=== PATIENT | female | born 1940 | race Caucasian/White ===

== ENCOUNTER 2016-11-05 10:47 | Inpatient (IN) | payer MEDICARE, OTHER ==
--- NOTE | ~2016-11-05 | DS ---
Discharge Summary [facility] [address] [place]. [address] NAME: WILDER JARAMILLO : 42 STATUS : DIS IN PAT#: [id number] AGE: 76 ADM/REG DATE : 11/06/16 MR#: [id number] REPORT SERV DATE: 11/10/16 DICTATED BY: KAREN LIND DATE: 11/09/16 REPORT STATUS : Draft TRANSCRIBED BY: MODL DATE: 11/09/16 ADMISSION DATE: 11/06/2016 DISCHARGE DATE: 11/09/2016 ADDENDUM: This is an addendum to Dr. Altman's discharge summary done apparently yesterday. The patient's ESBL E. coli in the urine is distinctly sensitive to Macrobid for which she does not have any allergy to. We will do Macrobid 100 p.o. b.i.d. for 8 days. She states she has recurrent UTI 3 times a year, never seen the urologist. She will need to see a urologist in four weeks, likely have a recurrent infection. Additionally, she will maximize Lipitor 80 p.o. daily for anti-stroke prevention. Also A1c of 7.1 be maintained on metformin. She has been intermittently hypertensive, possibly has LINDA, causing nighttime hypertension. We will get hydralazine 25 p.o. t.i.d. p.r.n. systolic more than 180. Outpatient sleep study will be employed p.o. b.i.d. for eight days to reduce the risk of C. diff with now being on Macrobid from [facility]. FOLLOWUPS: Per Dr. Altman. Additionally, would like the patient to be seen by Neurology three to six weeks. Schedule outpatient echo for atrial fibrillation in four weeks as well. Urology for possible in four weeks. Outpatient sleep study in three to four weeks. Follow up with PCP in two weeks. The patient will be going to facility today via ambulance. All questions were answered. It took well over 30 minutes to do. WST/ARSENL Karen Lind DO / [id number] CC: DO Xavier Wynne
--- NOTE | ~2016-11-05 | HP ---
History And Physical [place] [id number] [facility] [place]. [address] NAME: WILDER JARAMILLO : 42 STATUS : ADM Anna PAT#: [id number] AGE: 76 ADM/REG DATE : 11/05/16 MR#: [id number] REPORT SERV DATE: 11/05/16 DICTATED BY: BISMARK LOMELI DATE: 11/05/16 REPORT STATUS : Draft TRANSCRIBED BY: MODDonna DATE: 11/05/16 DATE OF ADMISSION: 11/05/2016 REASON FOR ADMISSION: Stroke. HISTORY OF PRESENT ILLNESS: This is a 76-year-old white female, bedridden at the longterm at [facility]. She has been there since February, has not walked, and was not expected to walk again. She was awakened this morning with numbness and weakness in the right upper extremity and her wrist. She thought she had laid on it for a while. She came to the emergency room where a CT scan of her brain was negative for any acute abnormality. She has gained a little strength over time. She has been unable to walk for the last six months. She has a longstanding history of hypertension. She has recurrent urinary tract infections and nephrolithiasis in the past. She has a history of DVT and PE in the past and is on chronic anticoagulation. She has a history of coronary artery disease, history of diastolic congestive heart failure, history of shingles, postherpetic neuralgia, history of vertigo, and left periorbital fracture in the past. She has had bladder tack with sling, rectocele repair, hysterectomy, and oophorectomy in the past. ALLERGIES: CODEINE. FAMILY HISTORY: Coronary artery disease, strokes run in the family. SOCIAL HISTORY: She raised her family up in and around [place]. She grew up in [place] as a child. She has five children. She has had no cigarette or alcohol history in the past. She is not taking cigarettes or alcohol. Medications are being identified by pharmacy at this time. Her primary care physician is Dr. Barrett at [facility] and she had seen Dr. Dobbs as her primary care physician in the past. HOME MEDICATIONS: Include the following: Amlodipine 10 mg p.o. daily, vitamin C 500 mg p.o. twice a day, fluticasone nasal spray as needed, Lasix 20 mg p.o. daily, gabapentin 300 mg p.o. three times a day, lisinopril 5 mg p.o. daily, multivitamin 1 a day, Klor-Con 10 mEq p.o. b.i.d., and sotalol 120 mg p.o. b.i.d. This list does not contain warfarin that she said she had in the past with a history of atrial fibrillation. REVIEW OF SYSTEMS: She has had no headache, eye pain, double vision, nausea, vomiting, diarrhea. No fits, History And Physical [address] [place]. [address] NAME: WILDER JARAMILLO : 42 STATUS : ADM Anna PAT#: [id number] AGE: 76 ADM/REG DATE : 11/05/16 MR#: [id number] REPORT SERV DATE: 11/05/16 DICTATED BY: BISMARK LOMELI DATE: 11/05/16 REPORT STATUS : Draft TRANSCRIBED BY: MICHELLE DATE: 11/05/16 seizures, nausea, vomiting, melena, or hematemesis. She does have right unilateral weakness in the hand but has good motion of her shoulder. The remaining of the review of systems is negative. PHYSICAL EXAMINATION: VITAL SIGNS: Her blood pressure is 168/100 with a heart rate of 78, respiratory rate 16, afebrile. HEENT: EOMI. Sclerae clear. Conjunctivae pink. Speech is normal. NECK: No bruit. No JVD. HEART: Regular S1, S2 without murmur, gallop, or click. CHEST: Clear to A and P. ABDOMEN: Soft and nontender. Bowel sounds positive. EXTREMITIES: Trace edema in the ankles. Distal pulses are trace. NEUROLOGIC: She has weakness in the right hand, unable to information security consultant. She says it subjectively decreased. The hand is cool. Distal pulses intact at the radial artery and has normal brian and refill. There is hyperesthesia of the feet bilaterally. She withdraws to plantar stimulation. DTRs not elicitable at the knees and ankles and not in the upper extremities either. SKIN: Ruboric diffusely without rash, ecchymosis, or bruising. LYMPHATICS: There is no adenopathy palpable. LABORATORY DATA: Chest x-ray shows no acute disease. She has modest cardiomegaly, unchanged. CT scan of her brain shows stable noncontrasted study with chronic small-vessel ischemia. CMP shows sodium 141, potassium 4.2, chloride 105, creatinine 0.8, BUN 11, glucose 126, albumin 3.1, globulin 4.8, alkaline phosphatase is 186. Troponin less than 0.02. Liver tests normal. Otherwise, the white count 6.8, hemoglobin 13.4, hematocrit 40.8, platelets were 297 and her glucose was 126 on arrival. ASSESSMENT: 1. Isolated lacunar stroke on the right side versus ischemic injury from having laid on it overnight. She does have good distal pulse now. She appears to be improving. She can extend her thumb on the right side slightly. There is diminished sensation in the right side. We will admit for observation and check ultrasound of the carotids. If the carotids show no evidence of occlusion, she may be able to go back to longterm fairly quickly. 2. Diabetes type 2, on no medications at this time. 3. Morbid obesity. 4. Hypertension. 5. Deconditioned state with bedridden status, unable to walk. PLAN: Ultrasound of carotid arteries will rule out occlusion that would be something that would prevent further stroke. She was on Coumadin, consider restarting the Coumadin. She does not want to be resuscitated in the event of cardiac arrest or have artificial resuscitative attempts in the event of a natural . I will go ahead and consult Neurology as a courtesy for the stroke admission orders and await a full medication list. History And Physical [address] [address] NAME: WILDER JARAMILLO : 42 STATUS : ADM Anna PAT#: [id number] AGE: 76 ADM/REG DATE : 11/05/16 MR#: [id number] REPORT SERV DATE: 11/05/16 DICTATED BY: BISMARK LOMELI DATE: 11/05/16 REPORT STATUS : Draft TRANSCRIBED BY: MICHELLE DATE: 11/05/16 DB/MICHELLE Bismark Lomeli M.D. / [id number] CC: Juan Diaz MICHAEL EUGENE Mario Mariani, M.D.
--- NOTE | ~2016-11-05 | DS ---
Discharge Summary [place] [id number] [place]. [address] NAME: WILDER JARAMILLO : 42 STATUS : DIS IN PAT#: [id number] AGE: 76 ADM/REG DATE : 11/06/16 MR#: [id number] REPORT SERV DATE: 12/01/16 DICTATED BY: CANDACE DELAROSA DATE: 11/21/16 REPORT STATUS : Draft TRANSCRIBED BY: MODDonna DATE: 11/21/16 ADMISSION DATE: 11/06/2016 DISCHARGE DATE: 11/09/2016 DATE OF SUMMARY: 11/09/2016 PRINCIPAL DIAGNOSIS: Stroke of the left hemisphere affecting the right hand. SECONDARY DIAGNOSES: Extended-spectrum beta-lactamase, urinary tract infection, hypertension, hyperlipidemia. HISTORY OF PRESENT ILLNESS: Please see Dr. Muniz's dictation on 11/05/2016. HOSPITAL COURSE: Admitted with isolated paresis of the right hand. There was a concern about radicular disease on initial Neurological consultation; however, this was not any particular spinal nerve consistent problem, but more global within the hand. MRI of the brain did in fact reveal a CVA. She underwent physical and occupational therapy and was referred to rehab, would be to transfer her on 11/09/2016, but she ended up going on 11/10/2016 and will be discharged by Dr. Watt. JESUS/MICHELLE Candace Delarosa M.D. / [id number] CC: DO Lebron Wynne M.D.
--- NOTE | ~2016-11-05 | CN ---
Consultation Report [facility] [address] [place]. [address] NAME: WILDER JARAMILLO : 42 STATUS : ADM Anna PAT#: [id number] AGE: 76 ADM/REG DATE : 11/05/16 MR#: [id number] REPORT SERV DATE: 11/05/16 DICTATED BY: STAR COMER DATE: 11/05/16 REPORT STATUS : Draft TRANSCRIBED BY: MODDonna DATE: 11/05/16 NEUROLOGY CONSULTATION DATE OF CONSULTATION: 11/05/2016 REASON FOR CONSULTATION: Possible stroke. HOSPITALIST: Gurinder Altman M.D. HISTORY OF PRESENT ILLNESS: The patient is a 76-year-old female who resides at [facility]. She woke up this morning and could not move her right hand. She thinks she may have "slept on her arm wrong," but she has very limited mobility with her right hand. She denies any other symptoms such as visual changes, numbness, weakness, imbalance, or changes in her speech. As the day has progressed, she has gotten some range of motion back in her right hand. According to the family, the patient has limited range of motion of her left arm. She had a bad case of shingles and had postherpetic neuralgia and because of the pain, she did not move her left arm. Consequently, she has limited range of motion. PAST MEDICAL HISTORY: Morbid obesity, hypertension, diabetes mellitus type 2, PE, DVT, atrial fibrillation, diastolic heart failure, chronic kidney disease, and coronary artery disease. PAST SURGICAL HISTORY: ISELA with BSO, appendectomy, bladder tack, rectocele repair. HOME MEDICATION LIST: Please refer to the chart. ALLERGIES: CODEINE. SOCIAL HISTORY: The patient resides at [facility]. She has five children. She is a retired automotive worker. She does not smoke, drink alcohol, or use illicits. FAMILY HISTORY: The patient's mother of stroke, father of [place]. She has six brothers, two of whom are living. REVIEW OF SYSTEMS: See HPI. PHYSICAL EXAMINATION: VITAL SIGNS: The patient is a 76-year-old female who stands 5 feet 5 inches tall and weighs 220 pounds. She is afebrile. Heart rate 84, respiratory rate 22, O2 saturations on room air 95%, and blood pressure 183/80. NEUROLOGIC: She is alert. She is oriented x4. Cranial nerves 2 through 12 are intact. Consultation Report [place] [address] [place]. [address] NAME: WILDER JARAMILLO : 42 STATUS : ADM Anna PAT#: [id number] AGE: 76 ADM/REG DATE : 11/05/16 MR#: [id number] REPORT SERV DATE: 11/05/16 DICTATED BY: STAR COMER DATE: 11/05/16 REPORT STATUS : Draft TRANSCRIBED BY: MICHELLE DATE: 11/05/16 She is unable to perform [id number], unable to do a pronator drift because of weakness in both arms. No reported sensory deficits in either extremity. Upper DTRs are 1+ bilaterally. Lower extremity strength is maybe 3/5 bilaterally. Patellar reflex is 1+ bilaterally. Downgoing toes. No reported sensory deficits. Right arm, there is wrist drop on the right. Slightly diminished sensation on the top of the hand. Very minimal movement with the fingers. Able to slightly abduct, very minimal adduct. Mild swelling in the right hand. Tinel's sign is negative over the radial, ulnar, and median nerve. Phalen's sign, unable to perform. LABORATORY DATA: CBC is normal. BMP normal. INR 2.1. Cholesterol value is elevated. CT of the brain: Stable CT. Chronic small vessel ischemia. 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 OT will be consulted to evaluate the patient and place a wrist splint for stabilization. If the patient's condition does not improve by tomorrow, she will be sent for MR imaging to rule out structural causes. Lab work will be drawn such as a thyroid panel, A1c, ammonia, B12, folate, and vitamin levels. OT and PT consultation. Also if the patient's symptoms persist greater than 2 weeks, EMG nerve conduction studies will be considered. Thank you again for including us in consultation. We will continue to follow with you. JOSEPH NAOMI Taylor / [id number] CC: Juan Diaz
[2016-11-05 09:29] LABS: BASOPHILS 0.4 %; BASOPHILS ABSOLUTE 0.03 10/3/uL (0.0-0.16); EOSINOPHILS 4.3 %; EOSINOPHILS ABSOLUTE 0.29 10/3/uL (0.0-0.53); IMMATURE GRANULOCYTES 0.6 %; IMMATURE GRANULOCYTES ABSOLUTE 0.04 10/3/uL (0.0-0.11); LYMPHOCYTES 40.2 %; LYMPHOCYTES ABSOLUTE 2.72 10/3/uL (0.67-4.30); MEAN CORPUSCULAR HEMOGLOB 30.6 pg (26.0-34.0); MEAN CORPUSCULAR VOLUME 93.2 fL (80-100); MEAN PLATELET VOLUME 10.8 fL (9.2-13.0); MONOCYTES 5.5 %; MONOCYTES ABSOLUTE 0.37 10/3/uL (0.21-1.20); NEUTROPHILS ABSOLUTE 3.31 10/3/uL (2.02-8.40); PLATELET COUNT 297 10/3/uL (150-400); RBC DISTRIBUTION WIDTH 15.2 % (12.0-16.0); WHITE BLOOD CELLS 6.8 10/3/uL (4.5-10.5)
[2016-11-05 09:30] LABS: HEMATOCRIT 40.8 % (36.0-48.0); HEMOGLOBIN 13.4 g/dL (12.0-16.0); MANUAL DIFF NO %; MEAN CORPUS HGB CONC 32.8 g/dL (32.0-36.0); RED CELL COUNT 4.38 10/6/uL (4.0-5.6)
[2016-11-05 09:41] LABS: INTERNATIONAL NORMAL RATI 2.1 UNITS (-); PARTIAL THROMBO TIME 36.4 SEC (22.5-37.2); PROTIME (NOT ORD) 23.2 SEC (12.0-14.5)
[2016-11-05 09:46] LABS: BUN (BLOOD UREA NITROGEN) 11 MG/DL (6-23); CALCIUM, SERUM 9.6 MG/DL (8.5-10.4); CHLORIDE, SERUM 105 MMOL/L (96-112); CO2 (CARBON DIOXIDE) 29 MMOL/L (24-34); GFR AFRICAN AMERICAN 84 ML/MIN (>=60); GFR NON AFRICAN AMERICAN 72 ML/MIN (>=60); POTASSIUM, SERUM 4.2 MMOL/L (3.5-5.3); SGOT(AST) 17 U/L (5-40); SGPT(ALT) 25 U/L (5-65); SODIUM, SERUM 141 MMOL/L (135-148); TOTAL BILIRUBIN 0.2 MG/DL (0-1.2); TOTAL PROTEIN 7.9 G/DL (6.0-8.5); TROPONIN I <0.02 NG/ML (<0.05)
[2016-11-05 09:47] LABS: A/G RATIO 0.6 (0.7-1.9); ALBUMIN 3.1 G/DL (3.5-5.0); ALKALINE PHOSPHATASE 186 U/L (45-117); GLOBULIN 4.8 G/DL (2.5-4.1); GLUCOSE, SERUM 126 MG/DL (60-99)
[~2016-11-05 10:47] MED LIST: 8 HOUR650 MG PO; ACET500CAP PO; ADVIL PO; APRES50 PO; ASA5GR PO; ASAB PO; BACDS PO; BETAP120 PO; C25 PO; C5 PO; CEFT5 PO; CIP5 PO; COUMADIN4 MG PO; COUMADIN6 MG PO; DIL2TAB PO; ENDOCET1 TAB PO; FAMCICLOVIR500 MG PO; FAMILY TO BRING; FLONASE NAS; FORTAMET500 MG PO; HYDROCHLOROT25 MG PO; JANTOVEN2 MG PO; JANTOVEN4 MG PO; JANTOVEN5 MG PO; KDUR10 PO; KDUR20 PO; KLOR-CON M2020 MEQ PO; L20 PO; LEVAQUIN750 MG PO; LOP50 PO; LORTAB 5 PO; MIRALAXPKT PO; NEUR300 PO; NORCO1 TA1 PO; NORV10 PO; NORV25 PO; NORV5 PO; PRIN5 PO; T PO; THERGRANM PO; VASOTEC20 MG PO; VITC500 PO
[2016-11-05] MEDS ORDERED: VITC500 PO (11:19)
[2016-11-05] MEDS ORDERED: NORV10 PO (11:19)
[2016-11-05] MEDS ORDERED: L20 PO (11:20)
[2016-11-05] MEDS ORDERED: PRIN5 PO (11:20)
[2016-11-05] MEDS ORDERED: NEUR300 PO (11:20)
[2016-11-05] MEDS ORDERED: FLONASE NAS (11:20)
[2016-11-05] MEDS ORDERED: SORINE120 MG PO (11:21)
[2016-11-05] MEDS ORDERED: CENTRUM PO (11:21)
[2016-11-05] MEDS ORDERED: KDUR10 PO (11:21)
[2016-11-05] MEDS ORDERED: C25 PO (13:56)
[2016-11-05] MEDS ORDERED: GLUCOSE GEL PO (13:57)
[2016-11-05] MEDS ORDERED: GLUCAGON IM (13:58)
[2016-11-05] MEDS ORDERED: NORCO1 TA1 PO (13:59)
[2016-11-05] MEDS ORDERED: ZOLOFT25 MG PO (14:00)
[2016-11-05] MEDS ORDERED: GLUCPH PO (14:30)
[2016-11-05 15:28] LABS: CHOL/HDL RATIO(NOT ORDER) 5.3 (0-5); CHOLESTEROL 200 MG/DL (< 200); HDL CHOLESTEROL 38 MG/DL (> 49); LDL CHOLESTEROL 95 MG/DL (< 130); NON-HDL CHOLESTEROL 162 MG/DL (< 160)
[2016-11-05 15:29] LABS: TRIGLYCERIDE 338 MG/DL (< 150)
[2016-11-05 16:21] LABS: TROPONIN I <0.02 NG/ML (<0.05)
[2016-11-05 16:22] LABS: CK-MB < 0.5 NG/ML; CPK 25 U/L (0-200)
[2016-11-05 23:13] LABS: CPK 26 U/L (0-200); TROPONIN I <0.02 NG/ML (<0.05)
[2016-11-05 23:15] LABS: CK-MB < 0.5 NG/ML
[2016-11-06 06:18] LABS: INTERNATIONAL NORMAL RATI 1.9 UNITS (-); PROTIME (NOT ORD) 21.3 SEC (12.0-14.5)
[2016-11-06 06:31] LABS: CPK 26 U/L (0-200); TROPONIN I <0.02 NG/ML (<0.05)
[2016-11-06 06:34] LABS: CK-MB < 0.5 NG/ML
[2016-11-06 06:52] LABS: FOLATE 15.5 NG/ML (>5.2); FREE T4 1.18 NG/DL (0.76-1.46); ULTRASENSITIVE TSH 2.88 MCIU/ML (0.358-3.740)
[2016-11-07 04:25] LABS: ASCORBIC ACID (UR NOT ORDER) NEG (NEG); BILIRUBIN, URINE NEGATIVE (NEG); KETONE, URINE NEGATIVE (NEG); LEUKOCYTE ESTERASE(NOT OR LARGE (NEG); WBC (NOT ORDERED) (RFLEX) > 182 (0-5)
[2016-11-07 05:08] LABS: INTERNATIONAL NORMAL RATI 1.7 UNITS (-); PROTIME (NOT ORD) 20.1 SEC (12.0-14.5)
[2016-11-07 05:21] LABS: CHOL/HDL RATIO(NOT ORDER) 5.5 (0-5)
[2016-11-08 05:44] LABS: INTERNATIONAL NORMAL RATI 1.8 UNITS (-)
[2016-11-09 09:14] LABS: INTERNATIONAL NORMAL RATI 1.5 UNITS (-); PROTIME (NOT ORD) 18.3 SEC (12.0-14.5)
[2016-11-11 22:26] LABS: VITAMIN A 0.61 mg/L (0.30-1.20); VITAMIN E 11.9 mg/L (5.5-21.0)
[2016-11-12 07:49] LABS: VITAMIN K1 5.73 nmol/L (0.22-4.88)
[2016-12-15] MEDS ORDERED: GLUCPH PO (19:20)
[2016-12-15] MEDS ORDERED: ELIQUIS 5 MG TAB5 MG PO (19:20)
[2016-12-15] MEDS ORDERED: NEUR300 PO (19:21)
[2016-12-15] MEDS ORDERED: PRIN5 PO (19:21)
[2016-12-15] MEDS ORDERED: BETAP120 PO (19:24)
[2016-12-15] MEDS ORDERED: LIPITOR80 MG PO (19:25)
[2016-12-15] MEDS ORDERED: VITAMIN D31000 UNIT PO (19:26)
[2016-12-15] MEDS ORDERED: ZOL50 PO (19:27)
[2016-12-15] MEDS ORDERED: MIRALAX POWDER1 PKT PO (19:27)
[2016-12-15] MEDS ORDERED: NORCO1 TA1 PO (19:28)
[2016-12-15] MEDS ORDERED: LOM PO (19:28)
[2016-12-15] MEDS ORDERED: T PO (19:29)
[2016-12-15] MEDS ORDERED: MOMUD PO (19:30)
[2016-12-15] MEDS ORDERED: ZOFRAN4 PO (19:30)
[2016-12-15] MEDS ORDERED: APRES25 PO (19:32)
== END 2016-11-09 18:01 | DRG 65 ==
LOC: ER 10:47 → 1SO 11:38
PROVIDERS: Hospitalist; Internal Medicine; Nurse Practitioner
DX: I63.9 Cerebral infarction, unspecified (principal); N39.0 Urinary tract infection, site not specified; I11.0 Hypertensive heart disease with heart failure; I50.32 Chronic diastolic (congestive) heart failure; E11.9 Type 2 diabetes mellitus without complications; B96.20 Unspecified Escherichia coli [E. coli] as the cause of diseases classified elsewhere; E53.8 Deficiency of other specified B group vitamins; I48.2 Chronic atrial fibrillation; R20.0 Anesthesia of skin; E66.01 Morbid (severe) obesity due to excess calories; Z74.01 Bed confinement status; Z86.718 Personal history of other venous thrombosis and embolism; Z86.711 Personal history of pulmonary embolism
CPT/HCPCS: 70450; 70551-52; 71010; 80053; 80061; 81001; 82140; 82306; 82550; 82553; 82607; 82746; 82962; 83036; 84439; 84443; 84446; 84484; 84590; 84597; 85025; 85610; 85730; 87077; 87086; 87186; 93005; 93880; 97110-GO; 97110-GP; 97162-GP; 97166-GO; 97530-GP; 97535-GO; 99285; A9270-GY; G8978-CM-GP; G8979-CM-GP

== ENCOUNTER 2016-12-15 19:39 | Inpatient (IN) | payer MEDICARE, OTHER ==
--- NOTE | ~2016-12-15 | HP ---
History And Physical [place] [address] [facility] [place]. [address] NAME: WILDER SKINNER : 42 STATUS : ADM IN [facility]#: [id number] AGE: 76 ADM/REG DATE : 12/15/16 MR#: [id number] REPORT SERV DATE: 12/16/16 DICTATED BY: KATHERINE PHILLIPS DATE: 12/15/16 REPORT STATUS : Draft TRANSCRIBED BY: MODL DATE: 12/15/16 DATE OF ADMISSION: 12/15/2016 ADMISSION DIAGNOSES: Acute hypoxic respiratory failure with septic shock and lactic acidosis. HISTORY OF PRESENT ILLNESS: The patient is currently in the intensive care unit, she presented by ambulance to the ER in respiratory distress. Currently, the patient's sons are at the bedside and note that the patient had the onset of respiratory distress. They are unaware of the exact events that occurred. However, per the nursing report, they noticed that the patient had an acute onset of altered mental status and respiratory distress around 5 o'clock. Her oxygen saturations were in the 80s and she became unresponsive. She was later intubated. Her evaluation in the ER shows that she has underlying septic shock, possible pneumonia, she currently has a urinary tract infection; however, the two sons mention that she chronically has urinary tract infection. She recently had a stroke. Otherwise, no further history. PAST MEDICAL HISTORY: History of stroke x2, last one was one month ago; chronic urinary tract infection; deconditioning requiring retirement stay for the last two years; diabetes; history of PE; congestive heart failure; coronary artery disease; and atrial fibrillation. HOME MEDICATIONS: Home medication list reviewed. The patient is on Eliquis, Neurontin, some pain medications, diabetes medications, and sotalol. ALLERGIES: CODEINE. SOCIAL HISTORY: Currently, resides in a retirement for the last two years. The patient has no smoking, alcohol, or illicit drug use. She has good family support. FAMILY HISTORY: Noted for hypertension. REVIEW OF SYSTEMS: Unable to obtain review of systems due to the patient's current medical status. CHIEF COMPLAINT: Again as noted above, unable to obtain chief complaint. PHYSICAL EXAMINATION: VITAL SIGNS: Afebrile, heart rate 93, and blood pressure currently 113/68. Oxygen saturation greater than 95% on mechanical ventilation. GENERAL: The patient is sedated on propofol. HEENT: No JVD noted. Neck is supple. PULMONARY: Mild crackles heard bilaterally, but otherwise, clear. No wheezing. CARDIAC: Regular rate. No murmurs. ABDOMEN: Soft, nontender, and nondistended. EXTREMITIES: No cyanosis. Extremity is warm to touch. Peripheral pulses noted. History And Physical [address] [place] [place]. [address] NAME: WILDER SKINNER : 42 STATUS : ADM IN [facility]#: [id number] AGE: 76 ADM/REG DATE : 12/15/16 MR#: [id number] REPORT SERV DATE: 12/16/16 DICTATED BY: KATHERINE PHILLIPS DATE: 12/15/16 REPORT STATUS : Draft TRANSCRIBED BY: MICHELLE DATE: 12/15/16 LABORATORY EXAMINATION: White blood cell count 17.2 with neutrophilia and no bands, hemoglobin 14.6, and platelet count 361. Creatinine 1.12, lactate 3.8, and glucose 280. Troponin 0.14. Arterial blood gas shows a pH of 7.25, pCO2 of 50, and PO2 of 245. IMAGING: CT of brain shows a stable advanced diffuse cerebral changes, subcentimeter old infarcts in the left cerebellar hemisphere. The patient has a small acute infarct in the left periventricular deep matter. Chest x-ray: Possible left lower lobe atelectasis, otherwise, no significant pneumonia. ASSESSMENT AND PLAN: Mrs. Skinner is a 76-year-old female with a past medical history noted above, who presents to the Critical Care Service in acute hypoxic respiratory failure with lactic acidosis and septic shock, currently on Levophed in the setting of a patient who has a chronic urinary tract infection and diabetes. She also has a small new stroke, possibly from hypotension. 1. Acute hypoxic respiratory failure: At this moment in time, we will continue mechanical ventilation settings. We will obtain arterial blood gas. 2. Septic shock: Unclear of the etiology. Due to the patient's history of extended- spectrum beta-lactamases Escherichia coli, we will change to meropenem, and due to the gram-positive cocci, we will also change to vancomycin as there was noted gram-positive cocci on sputum culture. Furthermore, check a cortisol. 3. Urinary tract infection: As noted above. 4. Diabetes: At this moment in time, we will start insulin sliding scale. 5. Positive troponin: Most likely demand, we will check a troponin in the morning. Upon review of EKG, the patient has an incomplete right bundle-branch block and other blocks noted. Compared to previous studies, there have been an increase in the blocks noted in this patient. We will check an EKG in the morning. 6. Prophylaxis: At this moment in time, we will provide deep venous thrombosis and gastrointestinal prophylaxis. 7. Code status: The patient is currently full code. 8. Diet: The patient is currently n.p.o. 9. Critical care time: 45 minutes. HFQ/MODL Katherine Phillips MD / [id number] CC: MD NIKOLAS Tyson MICHAEL EUGENE
--- NOTE | ~2016-12-15 | DS ---
Discharge Summary [facility] [address] [place]. [address] NAME: WILDER JARAMILLO : 42 STATUS : DIS IN PAT#: [id number] AGE: 76 ADM/REG DATE : 12/15/16 MR#: [id number] REPORT SERV DATE: 12/24/16 DICTATED BY: SHE CROFT DATE: 12/24/16 REPORT STATUS : Draft TRANSCRIBED BY: MODL DATE: 12/24/16 ADMISSION DATE: 12/15/2016 DISCHARGE DATE: 12/24/2016 REASON FOR ADMISSION: Septic shock with acute hypoxic respiratory failure requiring intubation. HISTORY OF PRESENT ILLNESS: Please refer Dr. Phillips's history and physical dated 12/16/2016 for complete details regarding the patient's admission. In brief, the patient was admitted to the [facility] for septic shock, placed on a Levophed drip along with acute hypoxic respiratory failure and intubated. HOSPITAL COURSE: From admission to 12/17/2016, please refer Dr. Solis's interim summary. In brief, the patient was treated for severe sepsis/septic shock secondary to a urinary source. She required vasopressor. She was intubated and successfully extubated. She developed acute kidney injury secondary to ATN from her septic shock. She was placed on meropenem. Urine cultures grew out ESBL E. coli. She was then transferred to the Hospitalist Service on 12/19/2016. Hospital course from 12/19/2016 to current, the patient was transferred to the Hospitalist Service. Nephrology was consulted for her RONY secondary to ATN. She did not require any dialysis. Her kidneys had slowly recovered. Her creatinine was 0.8 when she was discharged from the hospital in October. When she presented on 12/15/2016, her creatinine was 1.12, it had gotten up as high as 3.33, and then started slowly trending down. It is now down to 2.3 at the time of discharge. She has received about 10 days of IV meropenem. She will be switched over to oral fosfomycin. Her blood pressure was controlled with hydralazine and sotalol. She had no cardiac issues throughout the hospitalization. Her daughter was concerned that she seemed to be having some significant memory issues. I am unsure as to what her baseline memory is, but she did have a CT scan of her brain done on the day of admission, which showed some stable advanced diffuse cerebral involutional changes and advanced deep white matter ischemic changes. There are small subcentimeter old infarcts in the left cerebellar hemisphere. There is a small acute infarct in the left periventricular deep white matter within the clark radiata on the prior MRI that is not identified here. She had an acute left sphenoid sinus pattern. The patient has reached maximal hospitalization. Physical therapy had worked with the patient. There was a note that she was bedbound, but she actually did work with physical therapy. She will be discharged back to [facility] for rehab. DISCHARGE DIAGNOSES: Septic shock, requiring vasopressors, now resolved; extended-spectrum beta-lactamases Escherichia coli urinary tract infection; acute hypoxic respiratory failure, requiring intubation, now resolved; history of multiple old cerebrovascular accidents with a new small cerebrovascular accident, on aspirin and Eliquis; type 2 diabetes, stable, not requiring any insulin or medications; debility; hypertension; acute kidney injury secondary to acute tubular necrosis, now resolving; acute small infarct, on admission. PROCEDURES: Include CT scan of the brain without contrast on 12/15/2016, multiple chest x- rays, KUB, echocardiogram, care from Dr. Solis and Dr. Phillips from the ICU, consultation with Nephrology with Sherry Carballo and Dr. Brumfield. Discharge Summary [address] [address] NAME: WILDER JARAMILLO : 42 STATUS : DIS IN PAT#: [id number] AGE: 76 ADM/REG DATE : 12/15/16 MR#: [id number] REPORT SERV DATE: 12/24/16 DICTATED BY: SHE CROFT DATE: 12/24/16 REPORT STATUS : Draft TRANSCRIBED BY: MICHELLE DATE: 12/24/16 DISCHARGE MEDICATIONS: Include Eliquis 5 mg twice a day, aspirin 325 mg every morning, Lipitor 80 mg at bedtime, vitamin D3 5000 units every morning, Neurontin 300 mg three times a day, MiraLAX, Zoloft 50 mg every morning, sotalol 120 mg twice a day, and hydralazine 50 mg every eight hours. We are holding her metformin and lisinopril due to her kidney function. Tylenol p.r.n., Zofran p.r.n., Fosfomycin 3 g p.o. x1 to be given on 12/26/2016. The patient will be discharged in stable condition. This is Dr. She Croft spending over 30 minutes discharge planning and coordination of care on this patient. DICTATED BY: MD SONIDO Iniguez/MICHELLE She Croft MD / [id number] CC: MD NIKOLAS Iniguez MICHAEL EUGENE
--- NOTE | ~2016-12-15 | IDS ---
Interim Discharge Summary [facility] [address] [place]. [address] NAME: WILDER JARAMILLO : 42 STATUS : ADM IN [facility]#: [id number] AGE: 76 ADM/REG DATE : 12/15/16 MR#: [id number] REPORT SERV DATE: 12/17/16 DICTATED BY: JORGE A SOLIS DATE: 12/17/16 REPORT STATUS : Draft TRANSCRIBED BY: MODL DATE: 12/17/16 ADMISSION DATE: 12/15/2016 DISCHARGE DATE: DATE OF SUMMARY: 12/17/2016. DIAGNOSES: Severe sepsis septic shock due to urinary source. She has a gram-negative rods in urine. She had acute respiratory failure. She did require vasopressors, that is now finished. Continues on Merrem. She does have a history of previous ESBL. Plan will be to wean her from mechanical ventilator today. Her most recent labs show a sodium 139, potassium 4.2, chloride 105, CO2 of 25, BUN 26, creatinine 2.62 that is up from 1.52 on admission, glucose 110, calcium 9.0, magnesium 2.2. Her CBC shows an H and H of 11.1 and 34.0, white count 832[address], platelets 255,000. She is on heparin infusion. Had history of PE in the past. Plan will be to wean her today. RP/MICHELLE Jorge A Solis M.D. / [id number] CC: MD Nena Tyson Michael Eugene
--- NOTE | ~2016-12-15 | CN ---
Consultation Report [facility] [address] [place]. [address] NAME: WILDER JARAMILLO : 42 STATUS : ADM IN [facility]#: [id number] AGE: 76 ADM/REG DATE : 12/15/16 MR#: [id number] REPORT SERV DATE: 12/20/16 DICTATED BY: DATE: REPORT STATUS : Draft TRANSCRIBED BY: MODDonna DATE: 12/20/16 CONSULTATION DATE OF CONSULTATION: REASON FOR CONSULTATION: Acute kidney injury. HISTORY OF PRESENT ILLNESS: Ms. Mas is a 76-year-old white female, who presented to the hospital with respiratory distress with hypoxic acute respiratory failure, required intubation. She was found to be septic with UTI and cultures have grown out ESBL positive E coli. On arrival, her creatinine was 1.1, it has steadily increased from 1.5 to 2.6 to 3.1, today it is 3.2. She has a Cazares in place with good urine output. No nausea, vomiting. No shortness of breath. We have been asked to see her in consultation because of this creatinine of 3.2. PAST MEDICAL HISTORY: Recurrent UTIs, CVA with last being in 10/2016, diabetes, PE, CHF, coronary artery disease, atrial fibrillation. ALLERGIES: CODEINE. SOCIAL HISTORY: She lives in a fdc. No tobacco, alcohol, or illicit drug use. FAMILY MEDICAL HISTORY: Hypertension. CURRENT MEDICATIONS: Eliquis, aspirin, Lipitor, vitamin D, Neurontin, melatonin, Merrem, Solu-Medrol, Bactroban, Protonix, MiraLAX, Zoloft, and Betapace. At the nursing facility, she had been on lisinopril, metformin, these all have been discontinued during hospitalization. REVIEW OF SYSTEMS: 12-point review of systems obtained with the patient, however she has very poor memory. PHYSICAL EXAMINATION: VITAL SIGNS: Temp 97.6, blood pressure is 160/79, pulse 63, respiratory rate 14, O2 saturation is 93%. GENERAL: This is a pleasant, cooperative, white female. She is not oriented to person and place. HEENT: Normocephalic, atraumatic. Conjunctivae clear. Sclerae anicteric. Oral mucosa is moist. NECK: No lymphadenopathy. LUNGS: Respirations even and unlabored. Breath sounds clear to auscultation. HEART: Rate is regular. No murmur, rub, or gallop. ABDOMEN: Obese, soft, nontender. Bowel sounds active. No masses. No hepatosplenomegaly. No bruits. No CVA tenderness. Consultation Report [facility] [address] [place]. [address] NAME: WILDER JARAMILLO : 42 STATUS : ADM IN PAT#: [id number] AGE: 76 ADM/REG DATE : 12/15/16 MR#: [id number] REPORT SERV DATE: 12/20/16 DICTATED BY: DATE: REPORT STATUS : Draft TRANSCRIBED BY: MODL DATE: 12/20/16 BACK: Within normal limits. EXTREMITIES: With trace edema to the right, none to the left. SKIN: Warm, dry, and intact. No unusual rash or skin lesions. NEURO: No focal deficits. Has some generalize weakness. Mood and affect, she is very pleasant and appropriate. PERTINENT LABS AND X-RAYS: Sodium 138, potassium 4.6, chloride 106, CO2 of 23, BUN of 56, creatinine 3.2, magnesium 2.1, phosphorus of 4.1. WBC 36916, H and H 11 and 34, platelets 310,000. Chest x-ray, negative with some left pleural effusion and basilar atelectasis yesterday. IMPRESSION: 1. Nonoliguric acute kidney injury. 2. Status post sepsis secondary to ESBL positive urinary tract infection. 3. Status post acute respiratory failure. 4. Diabetes. PLAN/RECOMMENDATIONS: Acute kidney injury, most likely due to ATN as she had significant hypotension several days back with a creatinine increased. She is nonoliguric with no volume overload or uremic symptoms. We will continue medications as they are for now. We will check some urine studies. Follow labs and I's and O's and follow along with you. Hope to see recovery in the next several days. We will follow along with you Thank you for the consultation. NELL/MICHELLE MICHAEL Mills / [id number] CC: MD Jamshid Watkins
[2016-12-15 19:38] LABS: BASOPHILS 0.3 %; BASOPHILS ABSOLUTE 0.05 10/3/uL (0.0-0.16); EOSINOPHILS 1.8 %; EOSINOPHILS ABSOLUTE 0.31 10/3/uL (0.0-0.53); ER CBC TAT 0 Hrs 13 Mins; HEMATOCRIT 45.9 % (36.0-48.0); HEMOGLOBIN 14.6 g/dL (12.0-16.0); IMMATURE GRANULOCYTES 0.7 %; IMMATURE GRANULOCYTES ABSOLUTE 0.12 10/3/uL (0.0-0.11); LYMPHOCYTES ABSOLUTE 3.61 10/3/uL (0.67-4.30); MANUAL DIFF NO %; MEAN CORPUS HGB CONC 31.8 g/dL (32.0-36.0); MEAN CORPUSCULAR VOLUME 97.5 fL (80-100); MONOCYTES 4.2 %; MONOCYTES ABSOLUTE 0.72 10/3/uL (0.21-1.20); PLATELET COUNT 361 10/3/uL (150-400); RBC DISTRIBUTION WIDTH 15.9 % (12.0-16.0); RED CELL COUNT 4.71 10/6/uL (4.0-5.6); WHITE BLOOD CELLS 17.2 10/3/uL (4.5-10.5)
[~2016-12-15 19:39] MED LIST changes: +APRES25 PO; +CENTRUM PO; +ELIQUIS 5 MG TAB5 MG PO; +GLUCAGON IM; +GLUCOSE GEL PO; +GLUCPH PO; +LIPITOR80 MG PO; +LOM PO; +MIRALAX POWDER1 PKT PO; +MOMUD PO; +SORINE120 MG PO; +VITAMIN D31000 UNIT PO; +ZOFRAN4 PO; +ZOL50 PO; +ZOLOFT25 MG PO
[2016-12-15 19:49] LABS: A/G RATIO 0.5 (0.7-1.9); ALBUMIN 2.8 G/DL (3.5-5.0); BUN (BLOOD UREA NITROGEN) 10 MG/DL (6-23); CALCIUM, SERUM 9.4 MG/DL (8.5-10.4); CHLORIDE, SERUM 103 MMOL/L (96-112); CO2 (CARBON DIOXIDE) 29 MMOL/L (24-34); CREATININE 1.12 MG/DL (0.55-1.02); GFR AFRICAN AMERICAN 56 ML/MIN (>=60); GFR NON AFRICAN AMERICAN 48 ML/MIN (>=60); GLOBULIN 5.2 G/DL (2.5-4.1); SGPT(ALT) 29 U/L (5-65); SODIUM, SERUM 140 MMOL/L (135-148); TOTAL BILIRUBIN 0.2 MG/DL (0-1.2)
[2016-12-15 19:53] LABS: ALKALINE PHOSPHATASE 204 U/L (45-117); GLUCOSE, SERUM 280 MG/DL (60-99); POTASSIUM, SERUM 5.1 MMOL/L (3.5-5.3); SGOT(AST) 32 U/L (5-40)
[2016-12-15 19:54] LABS: TROPONIN I 0.14 NG/ML (<0.05)
[2016-12-15 20:36] LABS: ASCORBIC ACID (UR NOT ORDER) NEG (NEG); BILIRUBIN, URINE NEGATIVE (NEG); ER URINALYSIS TAT 0 Hrs 15 Mins; KETONE, URINE NEGATIVE (NEG); LEUKOCYTE ESTERASE(NOT OR LARGE (NEG); NITRITE (URINE) NEG (NEG)
[2016-12-15 20:40] LABS: WBC (NOT ORDERED) (RFLEX) > 182 (0-5)
[2016-12-15 20:43] LABS: ALLENS TEST Pos; BE (BASE EXCESS) -6.3 MEQ/L (0 +/- 2.5); HCO3 (ACTUAL BICARBONATE) 21.3 MEQ/L (23-27); INSTRUMENT SERIAL # 8087; MODE CMV; OPERATOR ID 23712; PCO2 (CO2 TENSION) 50 MMHG (35-45); PO2 (O2 TENSION) 245 MMHG (79-93); SAMPLE Arterial; TIDAL VOLUME 500 ML; pH 7.25 (7.37-7.43)
[2016-12-15 20:51] LABS: AMPHETAMINES (NOT ORD) NEG (NEG); BARBITURATES (NOT ORDERED NEG (NEG); BENZODIAZEPINES (NOT ORD) NEG (NEG); CANNABINOIDS (THC) NEG (NEG); COCAINE (NOT ORDERED) NEG (NEG); OPIATES POS (NEG); PHENCYCLIDINE(PCP) NEG (NEG); TRICYCLICS NEG (NEG)
[2016-12-16 05:18] LABS: BASOPHILS 0.5 %; BASOPHILS ABSOLUTE 0.07 10/3/uL (0.0-0.16); EOSINOPHILS 0.2 %; EOSINOPHILS ABSOLUTE 0.02 10/3/uL (0.0-0.53); HEMATOCRIT 42.6 % (36.0-48.0); HEMOGLOBIN 13.1 g/dL (12.0-16.0); IMMATURE GRANULOCYTES 0.5 %; IMMATURE GRANULOCYTES ABSOLUTE 0.06 10/3/uL (0.0-0.11); LYMPHOCYTES 17.5 %; MEAN CORPUS HGB CONC 30.8 g/dL (32.0-36.0); MEAN CORPUSCULAR HEMOGLOB 30.4 pg (26.0-34.0); MEAN CORPUSCULAR VOLUME 98.8 fL (80-100); MEAN PLATELET VOLUME 11.5 fL (9.2-13.0); MONOCYTES 7.2 %; MONOCYTES ABSOLUTE 0.95 10/3/uL (0.21-1.20); NEUTROPHILS 74.1 %; NEUTROPHILS ABSOLUTE 9.71 10/3/uL (2.02-8.40); NUCLEATED RED BLOOD CELLS 0.5 /100WBC (0-0); RBC DISTRIBUTION WIDTH 16.2 % (12.0-16.0); RED CELL COUNT 4.31 10/6/uL (4.0-5.6); WHITE BLOOD CELLS 13.1 10/3/uL (4.5-10.5)
[2016-12-16 05:20] LABS: MANUAL DIFF NO %; PLATELET COUNT 230 10/3/uL (150-400)
[2016-12-16 06:41] LABS: CALCIUM, SERUM 8.6 MG/DL (8.5-10.4); CHLORIDE, SERUM 108 MMOL/L (96-112); CO2 (CARBON DIOXIDE) 25 MMOL/L (24-34); CREATININE 1.52 MG/DL (0.55-1.02); GFR AFRICAN AMERICAN 38 ML/MIN (>=60); GFR NON AFRICAN AMERICAN 33 ML/MIN (>=60); SODIUM, SERUM 141 MMOL/L (135-148)
[2016-12-16 06:42] LABS: BUN (BLOOD UREA NITROGEN) 17 MG/DL (6-23); GLUCOSE, SERUM 145 MG/DL (60-99); TROPONIN I 1.24 NG/ML (<0.05)
[2016-12-16 15:10] LABS: PROCALCITONIN 22.72 ng/mL (<0.5)
[2016-12-16 23:25] LABS: POTASSIUM, SERUM 3.9 MMOL/L (3.5-5.3)
[2016-12-17 03:47] LABS: BE (BASE EXCESS) -3.3 MEQ/L (0 +/- 2.5); HCO3 (ACTUAL BICARBONATE) 20.5 MEQ/L (23-27); INSTRUMENT SERIAL # 8083; PCO2 (CO2 TENSION) 32 MMHG (35-45); PO2 (O2 TENSION) 93 MMHG (79-93); pH 7.42 (7.37-7.43)
[2016-12-17 03:48] LABS: ALLENS TEST Pos; CARBOXYHEMOGLOBIN 0.9 % (0-3); HEMOBLOGIN CONTENT 10.9 G/DL (12-16); METHEMOGLOBIN 0.1 % (0-3); MODE CMV; O2 CONTENT 14.8 VOL% (18-24); OPERATOR ID 13415; SAMPLE Arterial; TIDAL VOLUME 550 ML
[2016-12-17 06:44] LABS: BASOPHILS 0.3 %; BASOPHILS ABSOLUTE 0.03 10/3/uL (0.0-0.16); EOSINOPHILS 2.6 %; EOSINOPHILS ABSOLUTE 0.31 10/3/uL (0.0-0.53); HEMOGLOBIN 11.1 g/dL (12.0-16.0); IMMATURE GRANULOCYTES 0.4 %; IMMATURE GRANULOCYTES ABSOLUTE 0.05 10/3/uL (0.0-0.11); LYMPHOCYTES 19.7 %; LYMPHOCYTES ABSOLUTE 2.31 10/3/uL (0.67-4.30); MANUAL DIFF NO %; MEAN CORPUS HGB CONC 32.6 g/dL (32.0-36.0); MEAN CORPUSCULAR HEMOGLOB 30.8 pg (26.0-34.0); MEAN CORPUSCULAR VOLUME 94.4 fL (80-100); MEAN PLATELET VOLUME 11.5 fL (9.2-13.0); MONOCYTES 7.9 %; MONOCYTES ABSOLUTE 0.93 10/3/uL (0.21-1.20); NEUTROPHILS 69.1 %; PLATELET COUNT 255 10/3/uL (150-400); RBC DISTRIBUTION WIDTH 16.2 % (12.0-16.0); WHITE BLOOD CELLS 11.7 10/3/uL (4.5-10.5)
[2016-12-17 06:54] LABS: CHLORIDE, SERUM 105 MMOL/L (96-112); CO2 (CARBON DIOXIDE) 25 MMOL/L (24-34); POTASSIUM, SERUM 4.2 MMOL/L (3.5-5.3); SODIUM, SERUM 139 MMOL/L (135-148)
[2016-12-17 06:55] LABS: BUN (BLOOD UREA NITROGEN) 26 MG/DL (6-23); CREATININE 2.62 MG/DL (0.55-1.02); GFR AFRICAN AMERICAN 20 ML/MIN (>=60); GFR NON AFRICAN AMERICAN 17 ML/MIN (>=60); GLUCOSE, SERUM 110 MG/DL (60-99)
[2016-12-17 07:44] LABS: PROCALCITONIN 24.32 ng/mL (<0.5)
[2016-12-17 09:54] LABS: BE (BASE EXCESS) -4.5 MEQ/L (0 +/- 2.5); CARBOXYHEMOGLOBIN 0.6 % (0-3); DEVICE NC; HCO3 (ACTUAL BICARBONATE) 19.8 MEQ/L (23-27); HEMOBLOGIN CONTENT 11.5 G/DL (12-16); INSTRUMENT SERIAL # 8083; METHEMOGLOBIN 0.1 % (0-3); O2 CONTENT 15.6 VOL% (18-24); PCO2 (CO2 TENSION) 34 MMHG (35-45); PO2 (O2 TENSION) 95 MMHG (79-93); SAMPLE Arterial; pH 7.38 (7.37-7.43)
[2016-12-17 09:55] LABS: ALLENS TEST Pos
[2016-12-17 17:00] LABS: BE (BASE EXCESS) -5.1 MEQ/L (0 +/- 2.5); CARBOXYHEMOGLOBIN 0.5 % (0-3); HCO3 (ACTUAL BICARBONATE) 19.8 MEQ/L (23-27); INSTRUMENT SERIAL # 8083; METHEMOGLOBIN 0.2 % (0-3); O2 CONTENT 16.8 VOL% (18-24); PCO2 (CO2 TENSION) 36 MMHG (35-45); PO2 (O2 TENSION) 137 MMHG (79-93); SAMPLE Arterial; pH 7.35 (7.37-7.43)
[2016-12-17 17:01] LABS: ALLENS TEST Pos; OPERATOR ID 14472
[2016-12-18 05:27] LABS: PARTIAL THROMBO TIME 88.7 SEC (22.5-37.2)
[2016-12-18 05:33] LABS: BASOPHILS 0.1 %; BASOPHILS ABSOLUTE 0.01 10/3/uL (0.0-0.16); EOSINOPHILS 0 %; HEMATOCRIT 35.2 % (36.0-48.0); HEMOGLOBIN 11.3 g/dL (12.0-16.0); IMMATURE GRANULOCYTES 1.2 %; LYMPHOCYTES ABSOLUTE 1.75 10/3/uL (0.67-4.30); MEAN CORPUS HGB CONC 32.1 g/dL (32.0-36.0); MEAN CORPUSCULAR HEMOGLOB 29.9 pg (26.0-34.0); MEAN CORPUSCULAR VOLUME 93.1 fL (80-100); MONOCYTES 2.6 %; MONOCYTES ABSOLUTE 0.22 10/3/uL (0.21-1.20); NEUTROPHILS 75.1 %; NEUTROPHILS ABSOLUTE 6.25 10/3/uL (2.02-8.40); PLATELET COUNT 250 10/3/uL (150-400); RBC DISTRIBUTION WIDTH 16.3 % (12.0-16.0); RED CELL COUNT 3.78 10/6/uL (4.0-5.6); WHITE BLOOD CELLS 8.3 10/3/uL (4.5-10.5)
[2016-12-18 05:34] LABS: MANUAL DIFF NO %
[2016-12-18 05:36] LABS: BUN (BLOOD UREA NITROGEN) 18 MG/DL (6-23); CALCIUM, SERUM 8.9 MG/DL (8.5-10.4); CHLORIDE, SERUM 107 MMOL/L (96-112); CO2 (CARBON DIOXIDE) 14 MMOL/L (24-34); GFR AFRICAN AMERICAN 16 ML/MIN (>=60); GFR NON AFRICAN AMERICAN 14 ML/MIN (>=60); GLUCOSE, SERUM 169 MG/DL (60-99); POTASSIUM, SERUM 4.8 MMOL/L (3.5-5.3); SODIUM, SERUM 141 MMOL/L (135-148)
[2016-12-18 13:45] LABS: ALBUMIN 2.2 G/DL (3.5-5.0); BUN (BLOOD UREA NITROGEN) 37 MG/DL (6-23); CALCIUM, SERUM 8.5 MG/DL (8.5-10.4); CHLORIDE, SERUM 104 MMOL/L (96-112); CO2 (CARBON DIOXIDE) 25 MMOL/L (24-34); CREATININE 3.33 MG/DL (0.55-1.02); GFR AFRICAN AMERICAN 15 ML/MIN (>=60); GFR NON AFRICAN AMERICAN 13 ML/MIN (>=60); GLUCOSE, SERUM 249 MG/DL (60-99); PHOSPHORUS, SERUM 3.7 MG/DL (2.5-4.5); POTASSIUM, SERUM 4.1 MMOL/L (3.5-5.3); SODIUM, SERUM 138 MMOL/L (135-148)
[2016-12-19 05:24] LABS: BASOPHILS 0.1 %; BASOPHILS ABSOLUTE 0.01 10/3/uL (0.0-0.16); EOSINOPHILS 0 %; HEMOGLOBIN 11.1 g/dL (12.0-16.0); IMMATURE GRANULOCYTES 1.9 %; IMMATURE GRANULOCYTES ABSOLUTE 0.21 10/3/uL (0.0-0.11); LYMPHOCYTES 17.5 %; LYMPHOCYTES ABSOLUTE 1.98 10/3/uL (0.67-4.30); MEAN CORPUS HGB CONC 32.6 g/dL (32.0-36.0); MEAN CORPUSCULAR HEMOGLOB 30.5 pg (26.0-34.0); MEAN CORPUSCULAR VOLUME 93.4 fL (80-100); MEAN PLATELET VOLUME 11.6 fL (9.2-13.0); MONOCYTES ABSOLUTE 0.56 10/3/uL (0.21-1.20); NEUTROPHILS 75.5 %; NEUTROPHILS ABSOLUTE 8.55 10/3/uL (2.02-8.40); PLATELET COUNT 297 10/3/uL (150-400); RBC DISTRIBUTION WIDTH 16.3 % (12.0-16.0); RED CELL COUNT 3.64 10/6/uL (4.0-5.6); WHITE BLOOD CELLS 11.3 10/3/uL (4.5-10.5)
[2016-12-19 05:27] LABS: MANUAL DIFF NO %
[2016-12-19 05:33] LABS: INTERNATIONAL NORMAL RATI 1.4 UNITS (-); PROTIME (NOT ORD) 16.7 SEC (12.0-14.5)
[2016-12-19 05:34] LABS: CALCIUM, SERUM 8.8 MG/DL (8.5-10.4); CHLORIDE, SERUM 104 MMOL/L (96-112); CO2 (CARBON DIOXIDE) 23 MMOL/L (24-34); CREATININE 3.15 MG/DL (0.55-1.02); GFR AFRICAN AMERICAN 16 ML/MIN (>=60); GFR NON AFRICAN AMERICAN 14 ML/MIN (>=60); PARTIAL THROMBO TIME 106.2 SEC (22.5-37.2); PHOSPHORUS, SERUM 3.8 MG/DL (2.5-4.5); POTASSIUM, SERUM 4.2 MMOL/L (3.5-5.3); SODIUM, SERUM 138 MMOL/L (135-148)
[2016-12-19 05:36] LABS: BUN (BLOOD UREA NITROGEN) 43 MG/DL (6-23); GLUCOSE, SERUM 170 MG/DL (60-99)
[2016-12-20 05:27] LABS: INTERNATIONAL NORMAL RATI 1.5 UNITS (-); PROTIME (NOT ORD) 18.1 SEC (12.0-14.5)
[2016-12-20 05:28] LABS: PARTIAL THROMBO TIME 33.9 SEC (22.5-37.2)
[2016-12-20 05:31] LABS: BASOPHILS 0.2 %; BASOPHILS ABSOLUTE 0.02 10/3/uL (0.0-0.16); EOSINOPHILS 0 %; IMMATURE GRANULOCYTES ABSOLUTE 0.23 10/3/uL (0.0-0.11); LYMPHOCYTES 18.4 %; LYMPHOCYTES ABSOLUTE 2.14 10/3/uL (0.67-4.30); MEAN CORPUS HGB CONC 32.4 g/dL (32.0-36.0); MEAN CORPUSCULAR HEMOGLOB 30.2 pg (26.0-34.0); MEAN CORPUSCULAR VOLUME 93.4 fL (80-100); MEAN PLATELET VOLUME 11.6 fL (9.2-13.0); MONOCYTES 6.3 %; MONOCYTES ABSOLUTE 0.74 10/3/uL (0.21-1.20); NEUTROPHILS 73.1 %; NEUTROPHILS ABSOLUTE 8.53 10/3/uL (2.02-8.40); PLATELET COUNT 310 10/3/uL (150-400); RBC DISTRIBUTION WIDTH 16.2 % (12.0-16.0); RED CELL COUNT 3.64 10/6/uL (4.0-5.6); WHITE BLOOD CELLS 11.7 10/3/uL (4.5-10.5)
[2016-12-20 05:32] LABS: MANUAL DIFF NO %
[2016-12-20 05:37] LABS: CALCIUM, SERUM 8.9 MG/DL (8.5-10.4); CHLORIDE, SERUM 106 MMOL/L (96-112); CO2 (CARBON DIOXIDE) 23 MMOL/L (24-34); CREATININE 3.23 MG/DL (0.55-1.02); GFR AFRICAN AMERICAN 15 ML/MIN (>=60); GFR NON AFRICAN AMERICAN 13 ML/MIN (>=60); GLUCOSE, SERUM 168 MG/DL (60-99); PHOSPHORUS, SERUM 4.1 MG/DL (2.5-4.5); POTASSIUM, SERUM 4.6 MMOL/L (3.5-5.3); SODIUM, SERUM 138 MMOL/L (135-148)
[2016-12-20 05:38] LABS: BUN (BLOOD UREA NITROGEN) 56 MG/DL (6-23)
[2016-12-21 22:12] LABS: WBC (NOT ORDERED) (RFLEX) 0 (0-5)
[2016-12-21 22:19] LABS: ASCORBIC ACID (UR NOT ORDER) NEG (NEG); BILIRUBIN, URINE NEGATIVE (NEG); KETONE, URINE NEGATIVE (NEG); LEUKOCYTE ESTERASE(NOT OR NEG (NEG)
[2016-12-21 22:27] LABS: CREATININE, URINE 45.1 MG/DL
[2016-12-22 09:17] LABS: HEMOGLOBIN 12.3 g/dL (12.0-16.0); MEAN CORPUS HGB CONC 31.4 g/dL (32.0-36.0); MEAN CORPUSCULAR HEMOGLOB 30.6 pg (26.0-34.0); MEAN PLATELET VOLUME 11.6 fL (9.2-13.0); NUCLEATED RED BLOOD CELLS 0.9 /100WBC (0-0); PLATELET COUNT 305 10/3/uL (150-400); RBC DISTRIBUTION WIDTH 17.1 % (12.0-16.0); RED CELL COUNT 4.02 10/6/uL (4.0-5.6); WHITE BLOOD CELLS 15.2 10/3/uL (4.5-10.5)
[2016-12-22 09:18] LABS: HEMATOCRIT 39.2 % (36.0-48.0); MANUAL DIFF YES %; MEAN CORPUSCULAR VOLUME 97.5 fL (80-100)
[2016-12-22 09:22] LABS: ALBUMIN 2.4 G/DL (3.5-5.0); CALCIUM, SERUM 8.6 MG/DL (8.5-10.4); CHLORIDE, SERUM 112 MMOL/L (96-112); CO2 (CARBON DIOXIDE) 23 MMOL/L (24-34); PHOSPHORUS, SERUM 3.7 MG/DL (2.5-4.5); POTASSIUM, SERUM 5.3 MMOL/L (3.5-5.3); SODIUM, SERUM 143 MMOL/L (135-148)
[2016-12-22 09:23] LABS: BUN (BLOOD UREA NITROGEN) 67 MG/DL (6-23); CREATININE 2.73 MG/DL (0.55-1.02); GFR AFRICAN AMERICAN 19 ML/MIN (>=60); GFR NON AFRICAN AMERICAN 16 ML/MIN (>=60); GLUCOSE, SERUM 103 MG/DL (60-99)
[2016-12-22 09:44] LABS: ANISOCYTOSIS 1+ (5-10/OIF) (0-5/OIF); LYMPHOCYTES 35 %; LYMPHOCYTES ABSOLUTE (CALC) 5.32 10/3/uL (0.67-4.30); MONOCYTES 9 %; MONOCYTES ABSOLUTE (CALC) 1.37 10/3/uL (0.21-1.20); NEUTROPHILS ABSOLUTE (CALC) 8.51 10/3/uL (2.02-8.40); PLATELET ESTIMATE ADQ (ADEQUATE); SEGMENTED NEUTROPHIL (0) 56 %; TOTAL NUCLEATED CELLS 100
[2016-12-23 07:36] LABS: BASOPHILS 0.2 %; BASOPHILS ABSOLUTE 0.03 10/3/uL (0.0-0.16); EOSINOPHILS 2.8 %; EOSINOPHILS ABSOLUTE 0.42 10/3/uL (0.0-0.53); HEMATOCRIT 35.6 % (36.0-48.0); HEMOGLOBIN 11.5 g/dL (12.0-16.0); IMMATURE GRANULOCYTES 3.2 %; IMMATURE GRANULOCYTES ABSOLUTE 0.48 10/3/uL (0.0-0.11); LYMPHOCYTES ABSOLUTE 2.59 10/3/uL (0.67-4.30); MANUAL DIFF NO %; MEAN CORPUS HGB CONC 32.3 g/dL (32.0-36.0); MEAN CORPUSCULAR HEMOGLOB 30.2 pg (26.0-34.0); MEAN CORPUSCULAR VOLUME 93.4 fL (80-100); MEAN PLATELET VOLUME 11.8 fL (9.2-13.0); MONOCYTES ABSOLUTE 0.76 10/3/uL (0.21-1.20); NEUTROPHILS 71.8 %; NEUTROPHILS ABSOLUTE 10.95 10/3/uL (2.02-8.40); NUCLEATED RED BLOOD CELLS 0.6 /100WBC (0-0); PLATELET COUNT 333 10/3/uL (150-400); RBC DISTRIBUTION WIDTH 16.8 % (12.0-16.0); RED CELL COUNT 3.81 10/6/uL (4.0-5.6); WHITE BLOOD CELLS 15.2 10/3/uL (4.5-10.5)
[2016-12-23 08:03] LABS: ALBUMIN 2.5 G/DL (3.5-5.0); BUN (BLOOD UREA NITROGEN) 65 MG/DL (6-23); CALCIUM, SERUM 9.2 MG/DL (8.5-10.4); CHLORIDE, SERUM 112 MMOL/L (96-112); CO2 (CARBON DIOXIDE) 21 MMOL/L (24-34); CREATININE 2.54 MG/DL (0.55-1.02); GFR AFRICAN AMERICAN 21 ML/MIN (>=60); GFR NON AFRICAN AMERICAN 18 ML/MIN (>=60); GLUCOSE, SERUM 112 MG/DL (60-99); SODIUM, SERUM 143 MMOL/L (135-148)
[2016-12-23 08:04] LABS: POTASSIUM, SERUM 5.9 MMOL/L (3.5-5.3)
[2016-12-24 06:11] LABS: ALBUMIN 2.3 G/DL (3.5-5.0); CALCIUM, SERUM 8.9 MG/DL (8.5-10.4); CHLORIDE, SERUM 111 MMOL/L (96-112); GFR AFRICAN AMERICAN 23 ML/MIN (>=60); GFR NON AFRICAN AMERICAN 20 ML/MIN (>=60); GLUCOSE, SERUM 105 MG/DL (60-99); PHOSPHORUS, SERUM 4.1 MG/DL (2.5-4.5); SODIUM, SERUM 143 MMOL/L (135-148)
[2016-12-24 06:12] LABS: BUN (BLOOD UREA NITROGEN) 59 MG/DL (6-23); CO2 (CARBON DIOXIDE) 26 MMOL/L (24-34)
[2016-12-24 06:13] LABS: POTASSIUM, SERUM 5.3 MMOL/L (3.5-5.3)
[2016-12-24 06:47] LABS: HEMATOCRIT 36.1 % (36.0-48.0); HEMOGLOBIN 11.7 g/dL (12.0-16.0); MEAN CORPUS HGB CONC 32.4 g/dL (32.0-36.0); MEAN CORPUSCULAR HEMOGLOB 30.8 pg (26.0-34.0); NUCLEATED RED BLOOD CELLS 0.3 /100WBC (0-0); PLATELET COUNT 362 10/3/uL (150-400); WHITE BLOOD CELLS 13.7 10/3/uL (4.5-10.5)
[2016-12-24 06:52] LABS: MANUAL DIFF YES %
[2016-12-24 07:27] LABS: BAND NEUTROPHILS 2 %; EOSINOPHILS 3 %; EOSINOPHILS ABSOLUTE (CALC) 0.41 10/3/uL (0.0-0.53); LYMPHOCYTES 17 %; LYMPHOCYTES ABSOLUTE (CALC) 2.33 10/3/uL (0.67-4.30); MONOCYTES 5 %; MONOCYTES ABSOLUTE (CALC) 0.69 10/3/uL (0.21-1.20); NEUTROPHILS ABSOLUTE (CALC) 10.28 10/3/uL (2.02-8.40); NUCLEATED RED BLOOD CELLS 1 /100WBC (0); PLATELET ESTIMATE ADQ (ADEQUATE); RBC MORPHOLOGY NORM (NORMAL); SEGMENTED NEUTROPHIL (0) 73 %; TOTAL NUCLEATED CELLS 100
== END 2016-12-24 17:54 | DRG 871 ==
LOC: ER 19:39 → MIC 21:08 → 5SO 12-19 11:43
PROVIDERS: Emergency Medicine; Internal Medicine; Internal Medicine Critical Care Medicine; Internal Medicine Pulmonary Disease; Nurse Practitioner
PROC: 0BH17EZ Insertion of Endotracheal Airway into Trachea, Via Natural or Artificial Opening (ICD-10-PCS; principal; 2016-12-15)
PROC: 5A1945Z Respiratory Ventilation, 24-96 Consecutive Hours (ICD-10-PCS; 2016-12-15)
DX: A41.51 Sepsis due to Escherichia coli [E. coli] (principal); J96.01 Acute respiratory failure with hypoxia; I63.9 Cerebral infarction, unspecified; N17.0 Acute kidney failure with tubular necrosis; R65.21 Severe sepsis with septic shock; N39.0 Urinary tract infection, site not specified; J98.11 Atelectasis; E11.9 Type 2 diabetes mellitus without complications; I48.91 Unspecified atrial fibrillation; I25.10 Atherosclerotic heart disease of native coronary artery without angina pectoris; E66.9 Obesity, unspecified; I48.2 Chronic atrial fibrillation; G30.9 Alzheimer's disease, unspecified; F02.80 Dementia in other diseases classified elsewhere, unspecified severity, without behavioral disturbance, psychotic disturbance, mood disturbance, and anxiety; G30.0 Alzheimer's disease with early onset; Z86.73 Personal history of transient ischemic attack (TIA), and cerebral infarction without residual deficits; Z79.01 Long term (current) use of anticoagulants; Z86.718 Personal history of other venous thrombosis and embolism; Z68.35 Body mass index [BMI] 35.0-35.9, adult; Z88.5 Allergy status to narcotic agent; Z79.899 Other long term (current) drug therapy; Z79.82 Long term (current) use of aspirin; Z79.84 Long term (current) use of oral hypoglycemic drugs
CPT/HCPCS: 31500; 31720; 36600; 70450; 71010; 74000; 80048; 80053; 80069; 80305; 81001; 82533; 82570; 82805; 83605; 83690; 83735; 84100; 84132; 84145; 84300; 84484; 85025; 85610; 85730; 87040; 87070; 87077; 87086; 87186; 87205; 87641; 93005; 94002; 94003; 94640; 94660; 94668; 96365; 96366; 96368; 96375; 97110-GP; 97161-GP; 97530-GP; 99291; A9270-GY; C1894; C8929; C9113; G8978-CM-GP; G8979-CL-GP; J0330; J0360; J0692; J2185; J2920; J2930; J3370; J3475; Q9957

== ENCOUNTER 2016-12-30 09:22 | Inpatient (IN) | payer MEDICARE, OTHER ==
--- NOTE | ~2016-12-30 | DS ---
Discharge Summary [facility] [address] [place]. [address] NAME: WILDER JARAMILLO : 42 STATUS : DIS IN PAT#: [id number] AGE: 76 ADM/REG DATE : 12/30/16 MR#: [id number] REPORT SERV DATE: 01/14/17 DICTATED BY: LONDON RAE DATE: 01/13/17 REPORT STATUS : Draft TRANSCRIBED BY: MODDonna DATE: 01/13/17 ADMISSION DATE: 12/30/2016 DISCHARGE DATE: 01/13/2017 DISCHARGE DIAGNOSES: Include: 1. Bilateral pneumonia. 2. Hypoxic respiratory failure, acute. Pneumonia was healthcare-associated and that was present on admission. 3. Encephalopathy, multifactorial. 4. Chronic debility and declining functional status. 5. Chronic diastolic heart failure. 6. Dysphagia. 7. History of cerebrovascular accident and vascular dementia. 8. Atrial fibrillation. 9. Acute kidney injury on chronic kidney disease, stage 3. 10.History of hypertension. DISCHARGE MEDICINES: Are as follows: Eliquis 5 mg p.o. twice a day, Norvasc 5 mg twice a day, aspirin 325 mg daily, Lipitor 80 mg at bedtime, vitamin D 5000 units daily, Zoloft 50 mg daily, lisinopril 10 mg daily, Betapace 120 mg twice a day, hydralazine 100 mg three times a day, Neurontin 300 mg three times a day, MiraLax one packet daily, and [place] 5/325 one tablet every six hours p.r.n. for pain. HISTORY OF PRESENT ILLNESS: This is a pleasant, but unfortunate, 76-year-old female, who originally presented to [facility] on 12/30/2016, for respiratory failure. Please see the initial H and P of Dr. Fernie Garcias. The patient was originally admitted to the [facility]. Please see the interim summaries of Dr. James Miranda, netting inspector and also hospitalist, Dr. Latisha Torrez as this discharge summary will cover the dates of 01/11/2017 until 01/13/2017. CONTINUATION IN THE HOSPITAL COURSE: I began seeing the patient on 01/11/2017, where she was persisting in her pleasant confusion and was not participating in the overall therapy, was quite withdrawn and not eating well, but would answer questions and moved all extremities with the exception of her bilateral shoulders as they were a frozen joint syndrome. There had been some discussion with the family and Palliative Care had been consulted. They actually met with the entire family, all the siblings, and the patient at bedside on 01/12/2017, where they determined to make the patient a full DNR, but they wished to pursue [facility] the [facility], and exploring hospice in the future. The patient was felt safe for discharge back to [facility] on 01/13/2017, with the above described medications. Appreciate the assistance of Pulmonary and Palliative Care during this patient's hospitalizations and also the netting inspector. Questions were answered at bedside and the patient's family were in agreement with this plan going forward. Hopefully, given her multiple comorbid diseases and declining functional status and multiple hospital admissions, the meeting with Palliative Care will help establish a better goal-directed therapy going forward and please note greater than 30 minutes was spent on this discharge for family education, medication teaching as well. Discharge Summary [address] [address] NAME: WILDER JARAMILLO : 42 STATUS : DIS IN PAT#: [id number] AGE: 76 ADM/REG DATE : 12/30/16 MR#: [id number] REPORT SERV DATE: 01/14/17 DICTATED BY: LONDON RAE DATE: 01/13/17 REPORT STATUS : Draft TRANSCRIBED BY: MICHELLE DATE: 01/13/17 DICTATED BY: Haile Roberto NP DICTATED FOR: [place] Rae MD [facility] [place] Haile Roberto NP London Rae MD / [id number] CC: London Rae MD
--- NOTE | ~2016-12-30 | IDS ---
Interim Discharge Summary [facility] [address] [place]. [address] NAME: WILDER JARAMILLO : 42 STATUS : ADM IN [facility]#: [id number] AGE: 76 ADM/REG DATE : 12/30/16 MR#: [id number] REPORT SERV DATE: 01/10/17 DICTATED BY: AGUILAR CALDERON DATE: 01/10/17 REPORT STATUS : Draft TRANSCRIBED BY: MODDonna DATE: 01/10/17 ADMISSION DATE: 12/30/2016 DISCHARGE DATE: This is an interim discharge summary after the patient was transferred from intensive care unit to the floor from 01/06/2017 to 01/10/2017. Please also refer to interim discharge summary dictated by Dr. Miranda on 01/03/2017, when the patient was in ICU. 1. Respiratory failure, present on admission, resolved. 2. Healthcare associated pneumonia resolved. 3. CHF, diastolic dysfunction with volume overload, improved with periodic IV diuretics. 4. Acute kidney injury resolved. Chronic kidney disease with stable creatinine. Monitor creatinine level. 5. UTI, Cazares catheter associated. Urine culture grew Alessandra albicans. No need for any treatment. 6. Hypertension currently controlled. 7. Modified barium swallowing study. Recommended mechanical soft diet with meat grounded with gravy to thin liquids, at risk of aspiration. 8. Poor functional status, not eating much and not drinking much and not moving in bed. Physical therapy ordered. 9. Multiple admissions to the hospital. She had admissions on 11/05/2016, and 12/16/2016, and the last one this one 12/30/2016, for respiratory failure when she was intubated during this admission and then extubated around 01/03/2017, and then moved to the floor. 10.For the period that I saw the patient from 01/06/2017, to 01/10/2017, she is very weak. She is status post extubation as I dictated above, not eating, not drinking enough, not active, was very lethargic, then got better when the IV Lasix was given, still not moving, not eating or drinking. She was evaluated by biofuels product manager, Dr. Cespedes and biofuels product manager Dr. Garcias today, who recommended to discontinue antibiotics since she already completed full course of cefepime and vancomycin. Dr. Garcias thinks this is more like a congestive heart failure exacerbation, diastolic dysfunction and Lasix was given on 2 previous days with good results of her breathing. The patient had echocardiogram on 12/17/2016, on previous hospitalization which showed ejection fraction of 55% and no evidence of any significant abnormalities. She had mild aortic, mitral, and mild-to- moderate tricuspid regurgitation. Her diabetes was controlled. 11.So physical therapy is ordered. She had a modified barium swallowing study, which showed that she is at risk for aspiration but no obvious aspiration, so the diet that I dictated above was recommended but overall she has a very poor prognosis with being very weak and not eating and not moving. Physical therapy ordered and palliative Care consult was also ordered. Dr. Strong will see this patient starting tomorrow morning. MG/MICHELLE Aguilar Interim Discharge Summary [address] [address] NAME: JARAMILLOWILDER BRODIE : 42 STATUS : ADM IN PAT#: [id number] AGE: 76 ADM/REG DATE : 12/30/16 MR#: [id number] REPORT SERV DATE: 01/10/17 DICTATED BY: AGUILAR CALDERON DATE: 01/10/17 REPORT STATUS : Draft TRANSCRIBED BY: MICHELLE DATE: 01/10/17 Juan Calderon / [id number] CC: Aguilar Calderon M.D.
--- NOTE | ~2016-12-30 | IDS ---
Interim Discharge Summary [facility] [address] [place]. [address] NAME: WILDER JARAMILLO : 42 STATUS : ADM IN [facility]#: [id number] AGE: 76 ADM/REG DATE : 12/30/16 MR#: [id number] REPORT SERV DATE: 01/03/17 DICTATED BY: JAMES MIRANDA DATE: 01/03/17 REPORT STATUS : Draft TRANSCRIBED BY: MODL DATE: 01/03/17 ADMISSION DATE: 12/30/2016 DISCHARGE DATE: DIAGNOSES: 1. Acute respiratory failure. 2. Healthcare-associated pneumonia. 3. Type 2 diabetes. 4. Hypertensive urgency. 5. Acute kidney injury. 6. Paroxysmal atrial fibrillation. 7. Diastolic dysfunction. 8. Recent extended-spectrum beta-lactamases Escherichia coli urinary tract infection and septic shock from recent admission. PROCEDURES: Endotracheal intubation, 12/30/2016, right internal jugular central line. HOSPITAL COURSE: The patient admitted on 12/30/2016, after being recently discharged on 12/24/2016 for septic shock, respiratory failure, and urinary tract infection. She came from [facility] and had issues of shortness of breath, hypoxia, and hypertension. The patient was intubated and placed on the ventilator upon admission. DICTATION ENDS HERE CEP/MODL James Miranda DO / [id number] CC: Aureliano Ball MD
--- NOTE | ~2016-12-30 | IDS ---
Interim Discharge Summary [facility] [address] [place]. [address] NAME: WILDER JARAMILLO : 42 STATUS : ADM IN [facility]#: [id number] AGE: 76 ADM/REG DATE : 12/30/16 MR#: [id number] REPORT SERV DATE: 01/03/17 DICTATED BY: JAMES MIRANDA DATE: 01/03/17 REPORT STATUS : Draft TRANSCRIBED BY: MODL DATE: 01/03/17 ADMISSION DATE: 12/30/2016 DISCHARGE DATE: INTERIM DIAGNOSES: 1. Respiratory failure. 2. Healthcare-associated pneumonia. 3. Type 2 diabetes. 4. Hypertensive urgency. 5. Acute kidney injury. 6. Paroxysmal atrial fibrillation. 7. Diastolic dysfunction. PROCEDURES: Endotracheal intubation on 12/30/2016, central line. DESCRIPTION: A 76-year-old female recently discharged from the hospital on 12/24/2016 for septic shock, hypoxic respiratory failure, ESBL E coli urinary tract infection, who re- presents on 12/30 because of shortness of breath, hypoxia, and hypertension from [facility]. The patient was intubated, had a central line, and came to the ICU. There was some concern for possible pneumonia, so the patient was put on Maxipime, vancomycin and given a dose of tobramycin for healthcare-associated pneumonia. Sputum cultures did not grow anything. One set of blood cultures on 12/30 grew out coag-negative staph. The patient was successfully extubated a few days later after admission. She is tolerating oral diet. Both OT and PT are seeing the patient. The patient was very hypertensive and did have to be put on a Cardene drip for a while, which was eventually weaned off. She is currently on amlodipine and hydralazine. She does have a history of atrial fibrillation and does take sotalol and Eliquis. Blood sugars have been controlled. She did have both GI prophylaxis and DVT prophylaxis due to being on Eliquis. She did have a mild RONY with her creatinine of 1.61 on admission and today it is 1.18, and she is making good urine. Her creatinine was much higher on her last hospital discharge on 12/24, which was 2.3. The patient is stable to go to floor and will be transferred to the Hospitalist Service to a monitored bed. CEP/MODL James Miranda DO / [id number] CC: Aureliano Ball MD
--- NOTE | ~2016-12-30 | HP ---
History And Physical [facility] [address] [place]. [address] NAME: WILDER JARAMILLO : 42 STATUS : ADM IN [facility]#: [id number] AGE: 76 ADM/REG DATE : 12/30/16 MR#: [id number] REPORT SERV DATE: 12/30/16 DICTATED BY: LELIA GARCIAS IV DATE: 12/30/16 REPORT STATUS : Draft TRANSCRIBED BY: MICHELLE DATE: 12/30/16 DATE OF ADMISSION: 12/30/2016 TIME SEEN: 1310 to 1410 for 60 minutes of critical care time. HISTORY OF PRESENT ILLNESS: History was obtained from the records and somewhat from the son. Ms. Oliveira is a 76-year-old female with a history of cerebrovascular disease, diabetes mellitus, past pulmonary embolism, diastolic heart failure, hypertension, paroxysmal atrial fibrillation, coronary artery disease, and recurrent urinary tract infection, status post recent hospitalization for ESBL E coli sepsis with acute kidney injury, who was admitted with hypercapnic respiratory failure and hypertension requiring intubation. The patient was hospitalized at the end of November and just left the hospital the beginning of December following urosepsis with ESBL E coli. She was treated with meropenem and ultimately discharged back to [facility] for rehabilitation. The records are that the patient developed increased shortness of breath today with marked hypertension on presentation by EMS with significant hypoxemia. The patient was brought to the emergency room, where she underwent intubation for hypercapnic hypoxemic respiratory failure. Chest x ray demonstrated bilateral pulmonary infiltrates and she had an elevated white blood cell count, so there was a concern about healthcare-associated pneumonia. There was no history of gross aspiration, however, the son relates the patient did have difficulty choking at times. During the hospitalization, there was no swallow study performed that I can find. The patient is not on bronchodilator medications, reportedly not on supplemental oxygen at the time of her transfer. There are no reports of cough, sputum production, fevers, chills, sweats, or hemoptysis. The patient is currently sedated without reports of chest pain. PULMONARY HISTORY: Remarkable for no documented history of asthma or COPD. The son thinks she has had pneumonia in the past. She is reportedly a lifelong nonsmoker. Immunization status is not documented. PAST MEDICAL HISTORY: 1. Cerebrovascular disease. 2. Diabetes mellitus. 3. Past pulmonary embolism. 4. Diastolic heart dysfunction. 5. Hypertension. 6. Paroxysmal atrial fibrillation. 7. Coronary artery disease. 8. Recurrent urinary tract infections. SURGERIES: 1. Total abdominal hysterectomy. 2. Oophorectomy. 3. Appendectomy. 4. Bladder tack. 5. Rectocele repair. History And Physical [place] [address] [place]. [address] NAME: WILDER JARAMILLO : 42 STATUS : ADM IN PAT#: [id number] AGE: 76 ADM/REG DATE : 12/30/16 MR#: [id number] REPORT SERV DATE: 12/30/16 DICTATED BY: LELIA GARCIAS IV DATE: 12/30/16 REPORT STATUS : Draft TRANSCRIBED BY: MICHELLE DATE: 12/30/16 ALLERGIES: LISTED CODEINE, THOUGH THE SON IS UNAWARE OF THE REACTION. OUTPATIENT MEDICATIONS: Include Eliquis 5 mg twice a day, aspirin 325 mg daily, Lipitor 80 mg daily, Neurontin 300 mg three times a day, hydralazine 50 mg twice a day, Liguori 5 mg q.6 hours, MiraLAX daily, Zoloft 50 mg daily, Betapace 120 mg daily. SOCIAL HISTORY: Remarkable for no tobacco, alcohol, or illicit drug use. She is and currently residing at [facility]. FAMILY HISTORY: Remarkable for reportedly hypertension. REVIEW OF SYSTEMS: 14 systems reviewed and pertinent present above. PHYSICAL EXAMINATION: GENERAL: This is an elderly female, currently sedated on the mechanical ventilator. VITAL SIGNS: Temperature is 99.8, respiratory rate is 16, saturation 100%, blood pressure 105/51, pulse is 51. Of note, the patient's blood pressure was over 250/130 on presentation by report. HEENT: Patient is normocephalic, atraumatic. Extraocular movements do react to light. She has no drainage from either nasal passage. She is edentulous with a Mallampati III airway. There is an orotracheal and orogastric tube in position. NECK: Without any palpable lymphadenopathy or thyromegaly. She has a right IJ central venous catheter. CHEST: The patient has anterior rhonchi with a prolonged expiratory phase. There were some basilar posterior inspiratory crackles. No true wheezes are noted. CARDIOVASCULAR: Jugular venous pulsations are difficult to elicit. She has 1+ carotid upstrokes. No obvious bruit. She has a distant regular S1, S2 with no clear S3. There is a 2/6 systolic murmur at the left sternal border. Peripheral pulses are diminished. ABDOMEN: Surgical scars noted. Obese, soft, nontender. There are hypoactive bowel sounds. There is no palpable hepatosplenomegaly or mass. EXTREMITIES: Demonstrate no cyanosis, clubbing, edema, or palpable cords. She has redness on both heels. There is a skin lesion on her right fisher. There is some trace pretibial edema. NEUROLOGIC: The patient does withdraw extremities to noxious stimuli. Otherwise is sedated currently. LABORATORY DATA: Chest x-ray demonstrates endotracheal tube and central line to be in good position. There are bilateral infiltrates most consistent with pulmonary edema pattern. Hemoglobin 12.2, hematocrit 39.2, platelet count was 445,000, white count is 26. INR is 1.4, PTT is 31.5. Sodium is 142, potassium 4.9, chloride 109 bicarb 26, BUN 22, creatinine 1.61, glucose of 253. Procalcitonin level is 0.33. BNP is 1145. Troponin is 0.05. Initial blood gas was pH 7.09, pCO2 91, pO2 of 118. Urinalysis demonstrates 100 protein with 3 white blood cells. ASSESSMENT AND PLAN: History And Physical [address] [address] NAME: WILDER JARAMILLO : 42 STATUS : ADM IN [facility]#: [id number] AGE: 76 ADM/REG DATE : 12/30/16 MR#: [id number] REPORT SERV DATE: 12/30/16 DICTATED BY: LELIA GARCIAS IV DATE: 12/30/16 REPORT STATUS : Draft TRANSCRIBED BY: MICHELLE DATE: 12/30/16 1. Respiratory. The patient has no history of intrinsic lung disease. It is unclear whether the infiltrate could be infectious, cardiogenic, or aspiration. Will continue ventilatory support with a repeat blood gas on the new vent settings. DuoNebs will be given every four hours. 2. Cardiovascular. BNP is elevated with a radiographic picture of pulmonary edema. We will hold diuresis with a marginal blood pressure. EKG will be obtained tomorrow. Hydralazine will be given as needed for elevated blood pressure. Aspirin will be continued. Serial troponins will be obtained. BNP will be repeated in the morning. Recent echocardiogram demonstrated ejection fraction of 55%. 3. Infectious disease. Urinalysis is unremarkable. She will be treated for healthcare- associated pneumonia with cefepime and vancomycin and a dose of tobramycin. Urine antigen will be sent for Legionella as well as for Pneumococcus. Tracheal aspirate and blood cultures were both sent. 4. Renal. Kidney function is better, though still abnormal. LR at 40 mL an hour. Phosphate level will be obtained. 5. Neurologic. Propofol to RASS 0 to -2 sedation scale. Thiamine will be given 200 mg daily, multivitamin will be given daily. Neurontin dose will be decreased with the renal dysfunction. The patient will require a swallow evaluation prior to discharge if she clinically improves. 6. Hematologic. We will continue the Eliquis, follow the hemoglobin and hematocrit. 7. Endocrinologic. Levemir will be given six units twice a day with a level 2 insulin sliding scale. Thyroid functions recently normal. 8. Gastrointestinal. Glucerna 1.2 at 20 mL an hour. Protonix will be given. The patient will be admitted to the ICU under the gaming commissioner service. SUSY/MODL Lelia Garcias IV, M.D. / [id number] CC: MD NIKOLAS Guerra MICHAEL EUGENE
[2016-12-30 09:52] LABS: BE (BASE EXCESS) -4.8 MEQ/L (0 +/- 2.5); HCO3 (ACTUAL BICARBONATE) 27.1 MEQ/L (23-27); INSTRUMENT SERIAL # 8087; PCO2 (CO2 TENSION) 91 MMHG (35-45); PO2 (O2 TENSION) 118 MMHG (79-93); pH 7.09 (7.37-7.43)
[2016-12-30 09:53] LABS: ALLENS TEST Pos; CARBOXYHEMOGLOBIN 1.2 % (0-3); DEVICE NRB; HEMOBLOGIN CONTENT 12.9 G/DL (12-16); METHEMOGLOBIN 0.3 % (0-3); MODE CMV; O2 CONTENT 17.4 VOL% (18-24); SAMPLE Arterial; TIDAL VOLUME 500 ML
[2016-12-30] MEDS ORDERED: ELIQUIS 5 MG TAB5 MG PO (09:58)
[2016-12-30] MEDS ORDERED: NEUR300 PO (09:59)
[2016-12-30] MEDS ORDERED: LIPITOR80 MG PO (10:00)
[2016-12-30] MEDS ORDERED: BETAP120 PO (10:00)
[2016-12-30] MEDS ORDERED: MIRALAX POWDER1 PKT PO (10:01)
[2016-12-30] MEDS ORDERED: APRES50 PO (10:01)
[2016-12-30] MEDS ORDERED: D 5000 PO (10:01)
[2016-12-30] MEDS ORDERED: ZOL50 PO (10:02)
[2016-12-30] MEDS ORDERED: MONUROL PO (10:02)
[2016-12-30] MEDS ORDERED: NORCO1 TA1 PO (10:03)
[2016-12-30] MEDS ORDERED: ASAB PO (10:07)
[2016-12-30 10:22] LABS: HEMATOCRIT 39.2 % (36.0-48.0); HEMOGLOBIN 12.2 g/dL (12.0-16.0); MEAN CORPUS HGB CONC 31.1 g/dL (32.0-36.0); MEAN CORPUSCULAR HEMOGLOB 30.6 pg (26.0-34.0); MEAN PLATELET VOLUME 12.6 fL (9.2-13.0); PLATELET COUNT 445 10/3/uL (150-400); RBC DISTRIBUTION WIDTH 16.3 % (12.0-16.0); RED CELL COUNT 3.99 10/6/uL (4.0-5.6)
[2016-12-30 10:23] LABS: ER CBC TAT 0 Hrs 09 Mins; MEAN CORPUSCULAR VOLUME 98.2 fL (80-100)
[2016-12-30 10:25] LABS: INTERNATIONAL NORMAL RATI 1.4 UNITS (-); PARTIAL THROMBO TIME 31.5 SEC (22.5-37.2); PROTIME (NOT ORD) 16.9 SEC (12.0-14.5)
[2016-12-30 10:27] LABS: MANUAL DIFF YES %
[2016-12-30 10:35] LABS: ALBUMIN 2.6 G/DL (3.5-5.0); CALCIUM, SERUM 9.1 MG/DL (8.5-10.4); CHLORIDE, SERUM 109 MMOL/L (96-112); CO2 (CARBON DIOXIDE) 26 MMOL/L (24-34); POTASSIUM, SERUM 4.9 MMOL/L (3.5-5.3); SGPT(ALT) 31 U/L (5-65); SODIUM, SERUM 142 MMOL/L (135-148); TOTAL PROTEIN 7.8 G/DL (6.0-8.5)
[2016-12-30 10:36] LABS: ALKALINE PHOSPHATASE 177 U/L (45-117); BUN (BLOOD UREA NITROGEN) 22 MG/DL (6-23); CHEST PAIN PROFILE TAT 0 Hrs 21 Mins; CREATININE 1.61 MG/DL (0.55-1.02); DIRECT BILIRUBIN < 0.1 MG/DL (0.0-0.4); GFR AFRICAN AMERICAN 36 ML/MIN (>=60); GFR NON AFRICAN AMERICAN 31 ML/MIN (>=60); GLUCOSE, SERUM 253 MG/DL (60-99); INDIRECT BILIRUBIN(NOT ORDER) 0.8 MG/DL (0.1-0.9); TOTAL BILIRUBIN 0.9 MG/DL (0-1.2); TROPONIN I 0.05 NG/ML (<0.05)
[2016-12-30 10:37] LABS: SGOT(AST) 37 U/L (5-40)
[2016-12-30 10:47] LABS: ASCORBIC ACID (UR NOT ORDER) NEG (NEG); BILIRUBIN, URINE NEGATIVE (NEG); ER URINALYSIS TAT 0 Hrs 19 Mins; KETONE, URINE NEGATIVE (NEG); LEUKOCYTE ESTERASE(NOT OR NEG (NEG); NITRITE (URINE) NEG (NEG); WBC (NOT ORDERED) (RFLEX) 3 (0-5)
[2016-12-30 10:51] LABS: LACTATE 1.5 MMOL/L (0.3-2.4)
[2016-12-30 11:25] LABS: BAND NEUTROPHILS 6 %; BASOPHILS 1 %; BASOPHILS ABSOLUTE (CALC) 0.26 10/3/uL (0.0-0.16); EOSINOPHILS 1 %; EOSINOPHILS ABSOLUTE (CALC) 0.26 10/3/uL (0.0-0.53); LYMPHOCYTES 7 %; LYMPHOCYTES ABSOLUTE (CALC) 1.82 10/3/uL (0.67-4.30); MONOCYTES 1 %; MONOCYTES ABSOLUTE (CALC) 0.26 10/3/uL (0.21-1.20); SEGMENTED NEUTROPHIL (0) 84 %; TOTAL NUCLEATED CELLS 100
[2016-12-30 11:26] LABS: PLATELET ESTIMATE SLT INC (ADEQUATE); RBC MORPHOLOGY NORM (NORMAL)
[2016-12-30 11:29] LABS: ER DIFF TAT 1 Hrs 11 Mins
[2016-12-30 11:40] LABS: PROCALCITONIN 0.33 ng/mL (<0.5)
[2016-12-30 16:50] LABS: TROPONIN I 0.2 NG/ML (<0.05)
[2016-12-30 16:59] LABS: LACTATE 0.9 MMOL/L (0.3-2.4)
[2016-12-31 03:52] LABS: ALLENS TEST Pos; BE (BASE EXCESS) -0.8 MEQ/L (0 +/- 2.5); CARBOXYHEMOGLOBIN 0.8 % (0-3); HCO3 (ACTUAL BICARBONATE) 23.2 MEQ/L (23-27); HEMOBLOGIN CONTENT 12.6 G/DL (12-16); INSTRUMENT SERIAL # 8083; MODE CMV; O2 CONTENT 17.4 VOL% (18-24); OPERATOR ID 31061; PCO2 (CO2 TENSION) 36 MMHG (35-45); PO2 (O2 TENSION) 107 MMHG (79-93); SAMPLE Arterial; TIDAL VOLUME 500 ML; pH 7.43 (7.37-7.43)
[2016-12-31 07:22] LABS: BASOPHILS 0.3 %; BASOPHILS ABSOLUTE 0.03 10/3/uL (0.0-0.16); HEMATOCRIT 27.5 % (36.0-48.0); HEMOGLOBIN 8.9 g/dL (12.0-16.0); IMMATURE GRANULOCYTES 0.3 %; IMMATURE GRANULOCYTES ABSOLUTE 0.03 10/3/uL (0.0-0.11); LYMPHOCYTES 16.7 %; LYMPHOCYTES ABSOLUTE 1.69 10/3/uL (0.67-4.30); MANUAL DIFF NO %; MEAN CORPUS HGB CONC 32.4 g/dL (32.0-36.0); MEAN CORPUSCULAR HEMOGLOB 30.9 pg (26.0-34.0); MEAN CORPUSCULAR VOLUME 95.5 fL (80-100); MEAN PLATELET VOLUME 12.1 fL (9.2-13.0); MONOCYTES 7.1 %; MONOCYTES ABSOLUTE 0.72 10/3/uL (0.21-1.20); NEUTROPHILS 73.6 %; NEUTROPHILS ABSOLUTE 7.44 10/3/uL (2.02-8.40); PLATELET COUNT 272 10/3/uL (150-400); RBC DISTRIBUTION WIDTH 16.4 % (12.0-16.0); RED CELL COUNT 2.88 10/6/uL (4.0-5.6); WHITE BLOOD CELLS 10.1 10/3/uL (4.5-10.5)
[2016-12-31 07:44] LABS: ALBUMIN 2.1 G/DL (3.5-5.0); BUN (BLOOD UREA NITROGEN) 25 MG/DL (6-23); CALCIUM, SERUM 8.8 MG/DL (8.5-10.4); CHLORIDE, SERUM 113 MMOL/L (96-112); CO2 (CARBON DIOXIDE) 26 MMOL/L (24-34); CREATININE 1.53 MG/DL (0.55-1.02); GFR AFRICAN AMERICAN 38 ML/MIN (>=60); GFR NON AFRICAN AMERICAN 33 ML/MIN (>=60); PHOSPHORUS, SERUM 2.5 MG/DL (2.5-4.5); PREALBUMIN 15.8 MG/DL (17.0-43.0); SODIUM, SERUM 146 MMOL/L (135-148)
[2016-12-31 07:45] LABS: GLUCOSE, SERUM 82 MG/DL (60-99); POTASSIUM, SERUM 3.7 MMOL/L (3.5-5.3); TROPONIN I 0.09 NG/ML (<0.05)
[2016-12-31 07:58] LABS: TOBRAMYCIN, RANDOM 6.7 MCG/ML (5.0-12.0)
[2016-12-31 10:40] LABS: BASOPHILS 0.2 %; BASOPHILS ABSOLUTE 0.02 10/3/uL (0.0-0.16); EOSINOPHILS 2.6 %; EOSINOPHILS ABSOLUTE 0.21 10/3/uL (0.0-0.53); HEMATOCRIT 26.7 % (36.0-48.0); HEMOGLOBIN 8.5 g/dL (12.0-16.0); IMMATURE GRANULOCYTES 0.1 %; IMMATURE GRANULOCYTES ABSOLUTE 0.01 10/3/uL (0.0-0.11); LYMPHOCYTES ABSOLUTE 1.48 10/3/uL (0.67-4.30); MANUAL DIFF NO %; MEAN CORPUS HGB CONC 31.8 g/dL (32.0-36.0); MEAN CORPUSCULAR HEMOGLOB 30.8 pg (26.0-34.0); MEAN CORPUSCULAR VOLUME 96.7 fL (80-100); MEAN PLATELET VOLUME 11.4 fL (9.2-13.0); MONOCYTES ABSOLUTE 0.49 10/3/uL (0.21-1.20); NEUTROPHILS 73.1 %; NEUTROPHILS ABSOLUTE 6.02 10/3/uL (2.02-8.40); PLATELET COUNT 257 10/3/uL (150-400); RBC DISTRIBUTION WIDTH 16.4 % (12.0-16.0); RED CELL COUNT 2.76 10/6/uL (4.0-5.6); WHITE BLOOD CELLS 8.2 10/3/uL (4.5-10.5)
[2016-12-31 11:05] LABS: BUN (BLOOD UREA NITROGEN) 25 MG/DL (6-23); CALCIUM, SERUM 8.7 MG/DL (8.5-10.4); CHLORIDE, SERUM 114 MMOL/L (96-112); CO2 (CARBON DIOXIDE) 27 MMOL/L (24-34); CREATININE 1.53 MG/DL (0.55-1.02); GFR AFRICAN AMERICAN 38 ML/MIN (>=60); GFR NON AFRICAN AMERICAN 33 ML/MIN (>=60); GLUCOSE, SERUM 86 MG/DL (60-99); POTASSIUM, SERUM 3.8 MMOL/L (3.5-5.3); SODIUM, SERUM 144 MMOL/L (135-148)
[2017-01-01 04:07] LABS: BASOPHILS 0.2 %; BASOPHILS ABSOLUTE 0.02 10/3/uL (0.0-0.16); EOSINOPHILS 3.8 %; EOSINOPHILS ABSOLUTE 0.32 10/3/uL (0.0-0.53); HEMATOCRIT 26.2 % (36.0-48.0); HEMOGLOBIN 8.3 g/dL (12.0-16.0); IMMATURE GRANULOCYTES 0.2 %; IMMATURE GRANULOCYTES ABSOLUTE 0.02 10/3/uL (0.0-0.11); LYMPHOCYTES 15.8 %; LYMPHOCYTES ABSOLUTE 1.33 10/3/uL (0.67-4.30); MEAN CORPUS HGB CONC 31.7 g/dL (32.0-36.0); MEAN CORPUSCULAR HEMOGLOB 30.4 pg (26.0-34.0); MEAN PLATELET VOLUME 11.7 fL (9.2-13.0); MONOCYTES 6.4 %; MONOCYTES ABSOLUTE 0.54 10/3/uL (0.21-1.20); NEUTROPHILS 73.6 %; PLATELET COUNT 253 10/3/uL (150-400); RBC DISTRIBUTION WIDTH 16.6 % (12.0-16.0); RED CELL COUNT 2.73 10/6/uL (4.0-5.6); WHITE BLOOD CELLS 8.4 10/3/uL (4.5-10.5)
[2017-01-01 04:10] LABS: MANUAL DIFF NO %
[2017-01-01 04:15] LABS: ALLENS TEST Pos; BE (BASE EXCESS) -2.8 MEQ/L (0 +/- 2.5); CARBOXYHEMOGLOBIN 0.3 % (0-3); HCO3 (ACTUAL BICARBONATE) 21.3 MEQ/L (23-27); HEMOBLOGIN CONTENT 9.7 G/DL (12-16); INSTRUMENT SERIAL # 35151; METHEMOGLOBIN 0.4 % (0-3); MODE CMV; O2 CONTENT 13.4 VOL% (18-24); OPERATOR ID 33214; PCO2 (CO2 TENSION) 34 MMHG (35-45); PO2 (O2 TENSION) 109 MMHG (79-93); SAMPLE Arterial; TIDAL VOLUME 500 ML; pH 7.41 (7.37-7.43)
[2017-01-01 04:21] LABS: BUN (BLOOD UREA NITROGEN) 27 MG/DL (6-23); CALCIUM, SERUM 8.6 MG/DL (8.5-10.4); CHLORIDE, SERUM 114 MMOL/L (96-112); CO2 (CARBON DIOXIDE) 27 MMOL/L (24-34); CREATININE 1.56 MG/DL (0.55-1.02); GFR AFRICAN AMERICAN 37 ML/MIN (>=60); GFR NON AFRICAN AMERICAN 32 ML/MIN (>=60); GLUCOSE, SERUM 111 MG/DL (60-99); PHOSPHORUS, SERUM 2.4 MG/DL (2.5-4.5); POTASSIUM, SERUM 3.8 MMOL/L (3.5-5.3); SODIUM, SERUM 145 MMOL/L (135-148)
[2017-01-01 05:34] LABS: PROCALCITONIN 5.49 ng/mL (<0.5)
[2017-01-01 21:09] LABS: CALCIUM, SERUM 8.9 MG/DL (8.5-10.4); CHLORIDE, SERUM 111 MMOL/L (96-112); CO2 (CARBON DIOXIDE) 27 MMOL/L (24-34); CREATININE 1.41 MG/DL (0.55-1.02); GFR AFRICAN AMERICAN 42 ML/MIN (>=60); GFR NON AFRICAN AMERICAN 36 ML/MIN (>=60); GLUCOSE, SERUM 102 MG/DL (60-99); POTASSIUM, SERUM 3.8 MMOL/L (3.5-5.3); SODIUM, SERUM 143 MMOL/L (135-148)
[2017-01-01 21:11] LABS: BUN (BLOOD UREA NITROGEN) 23 MG/DL (6-23)
[2017-01-02 06:33] LABS: BASOPHILS 0.3 %; BASOPHILS ABSOLUTE 0.03 10/3/uL (0.0-0.16); EOSINOPHILS 4.7 %; EOSINOPHILS ABSOLUTE 0.47 10/3/uL (0.0-0.53); HEMATOCRIT 27.9 % (36.0-48.0); HEMOGLOBIN 8.7 g/dL (12.0-16.0); IMMATURE GRANULOCYTES 0.5 %; IMMATURE GRANULOCYTES ABSOLUTE 0.05 10/3/uL (0.0-0.11); LYMPHOCYTES 16.6 %; LYMPHOCYTES ABSOLUTE 1.67 10/3/uL (0.67-4.30); MEAN CORPUS HGB CONC 31.2 g/dL (32.0-36.0); MEAN CORPUSCULAR HEMOGLOB 29.6 pg (26.0-34.0); MEAN CORPUSCULAR VOLUME 94.9 fL (80-100); MEAN PLATELET VOLUME 12.5 fL (9.2-13.0); MONOCYTES 5.8 %; MONOCYTES ABSOLUTE 0.58 10/3/uL (0.21-1.20); NEUTROPHILS 72.1 %; NEUTROPHILS ABSOLUTE 7.26 10/3/uL (2.02-8.40); PLATELET COUNT 306 10/3/uL (150-400); RED CELL COUNT 2.94 10/6/uL (4.0-5.6); WHITE BLOOD CELLS 10.1 10/3/uL (4.5-10.5)
[2017-01-02 06:34] LABS: MANUAL DIFF NO %
[2017-01-02 06:50] LABS: A/G RATIO 0.5 (0.7-1.9); ALBUMIN 2.2 G/DL (3.5-5.0); ALKALINE PHOSPHATASE 142 U/L (45-117); BUN (BLOOD UREA NITROGEN) 19 MG/DL (6-23); CALCIUM, SERUM 8.9 MG/DL (8.5-10.4); CHLORIDE, SERUM 111 MMOL/L (96-112); CO2 (CARBON DIOXIDE) 26 MMOL/L (24-34); CREATININE 1.32 MG/DL (0.55-1.02); GFR AFRICAN AMERICAN 46 ML/MIN (>=60); GFR NON AFRICAN AMERICAN 39 ML/MIN (>=60); GLOBULIN 4.3 G/DL (2.5-4.1); GLUCOSE, SERUM 71 MG/DL (60-99); PHOSPHORUS, SERUM 2.3 MG/DL (2.5-4.5); POTASSIUM, SERUM 3.7 MMOL/L (3.5-5.3); SGOT(AST) 26 U/L (5-40); SGPT(ALT) 26 U/L (5-65); SODIUM, SERUM 143 MMOL/L (135-148); TOTAL BILIRUBIN 0.4 MG/DL (0-1.2); TOTAL PROTEIN 6.5 G/DL (6.0-8.5)
[2017-01-03 04:14] LABS: BASOPHILS 0.4 %; BASOPHILS ABSOLUTE 0.03 10/3/uL (0.0-0.16); EOSINOPHILS 4.7 %; EOSINOPHILS ABSOLUTE 0.39 10/3/uL (0.0-0.53); HEMATOCRIT 26.8 % (36.0-48.0); HEMOGLOBIN 8.8 g/dL (12.0-16.0); IMMATURE GRANULOCYTES 0.4 %; IMMATURE GRANULOCYTES ABSOLUTE 0.03 10/3/uL (0.0-0.11); LYMPHOCYTES ABSOLUTE 1.83 10/3/uL (0.67-4.30); MEAN CORPUSCULAR HEMOGLOB 31.5 pg (26.0-34.0); MEAN CORPUSCULAR VOLUME 96.1 fL (80-100); MEAN PLATELET VOLUME 11.8 fL (9.2-13.0); MONOCYTES 7.6 %; MONOCYTES ABSOLUTE 0.63 10/3/uL (0.21-1.20); NEUTROPHILS 64.9 %; NEUTROPHILS ABSOLUTE 5.42 10/3/uL (2.02-8.40); PLATELET COUNT 282 10/3/uL (150-400); RBC DISTRIBUTION WIDTH 16.8 % (12.0-16.0); RED CELL COUNT 2.79 10/6/uL (4.0-5.6); WHITE BLOOD CELLS 8.3 10/3/uL (4.5-10.5)
[2017-01-03 04:20] LABS: MANUAL DIFF NO %; MEAN CORPUS HGB CONC 32.8 g/dL (32.0-36.0)
[2017-01-03 04:27] LABS: ALBUMIN 2.1 G/DL (3.5-5.0); BUN (BLOOD UREA NITROGEN) 16 MG/DL (6-23); CALCIUM, SERUM 8.2 MG/DL (8.5-10.4); CHLORIDE, SERUM 110 MMOL/L (96-112); CO2 (CARBON DIOXIDE) 29 MMOL/L (24-34); CREATININE 1.18 MG/DL (0.55-1.02); GFR AFRICAN AMERICAN 52 ML/MIN (>=60); GFR NON AFRICAN AMERICAN 45 ML/MIN (>=60); POTASSIUM, SERUM 3.6 MMOL/L (3.5-5.3); SODIUM, SERUM 143 MMOL/L (135-148)
[2017-01-03 04:29] LABS: GLUCOSE, SERUM 92 MG/DL (60-99); PHOSPHORUS, SERUM 3.5 MG/DL (2.5-4.5)
[2017-01-03 05:41] LABS: PROCALCITONIN 1.56 ng/mL (<0.5)
[2017-01-04 06:04] LABS: BASOPHILS 0.3 %; BASOPHILS ABSOLUTE 0.02 10/3/uL (0.0-0.16); EOSINOPHILS 5.1 %; EOSINOPHILS ABSOLUTE 0.37 10/3/uL (0.0-0.53); HEMATOCRIT 28.3 % (36.0-48.0); HEMOGLOBIN 8.9 g/dL (12.0-16.0); IMMATURE GRANULOCYTES 0.1 %; IMMATURE GRANULOCYTES ABSOLUTE 0.01 10/3/uL (0.0-0.11); LYMPHOCYTES 26.3 %; LYMPHOCYTES ABSOLUTE 1.91 10/3/uL (0.67-4.30); MEAN CORPUS HGB CONC 31.4 g/dL (32.0-36.0); MEAN CORPUSCULAR HEMOGLOB 30.2 pg (26.0-34.0); MEAN CORPUSCULAR VOLUME 95.9 fL (80-100); MEAN PLATELET VOLUME 12.5 fL (9.2-13.0); MONOCYTES 6.5 %; MONOCYTES ABSOLUTE 0.47 10/3/uL (0.21-1.20); NEUTROPHILS 61.7 %; NEUTROPHILS ABSOLUTE 4.49 10/3/uL (2.02-8.40); PLATELET COUNT 274 10/3/uL (150-400); RBC DISTRIBUTION WIDTH 16.5 % (12.0-16.0); RED CELL COUNT 2.95 10/6/uL (4.0-5.6); WHITE BLOOD CELLS 7.3 10/3/uL (4.5-10.5)
[2017-01-04 06:06] LABS: MANUAL DIFF NO %
[2017-01-04 06:22] LABS: BUN (BLOOD UREA NITROGEN) 16 MG/DL (6-23); CHLORIDE, SERUM 108 MMOL/L (96-112); CO2 (CARBON DIOXIDE) 26 MMOL/L (24-34); CREATININE 1.11 MG/DL (0.55-1.02); GFR AFRICAN AMERICAN 56 ML/MIN (>=60); GFR NON AFRICAN AMERICAN 49 ML/MIN (>=60); GLUCOSE, SERUM 87 MG/DL (60-99); PHOSPHORUS, SERUM 2.6 MG/DL (2.5-4.5); SODIUM, SERUM 141 MMOL/L (135-148)
[2017-01-04 15:07] LABS: INSTRUMENT SERIAL # 35151
[2017-01-04 15:08] LABS: BE (BASE EXCESS) 1.3 MEQ/L (0 +/- 2.5); CARBOXYHEMOGLOBIN 0.1 % (0-3); DEVICE NC; HCO3 (ACTUAL BICARBONATE) 25.3 MEQ/L (23-27); HEMOBLOGIN CONTENT 10.6 G/DL (12-16); METHEMOGLOBIN 0.5 % (0-3); O2 CONTENT 14.3 VOL% (18-24); PCO2 (CO2 TENSION) 38 MMHG (35-45); PO2 (O2 TENSION) 86 MMHG (79-93); SAMPLE Arterial; pH 7.44 (7.37-7.43)
[2017-01-05 04:07] LABS: BUN (BLOOD UREA NITROGEN) 13 MG/DL (6-23); CALCIUM, SERUM 8.8 MG/DL (8.5-10.4); CHLORIDE, SERUM 109 MMOL/L (96-112); CO2 (CARBON DIOXIDE) 27 MMOL/L (24-34); CREATININE 1.06 MG/DL (0.55-1.02); GFR AFRICAN AMERICAN 59 ML/MIN (>=60); GFR NON AFRICAN AMERICAN 51 ML/MIN (>=60); GLUCOSE, SERUM 86 MG/DL (60-99); POTASSIUM, SERUM 3.4 MMOL/L (3.5-5.3); SODIUM, SERUM 140 MMOL/L (135-148)
[2017-01-05 04:08] LABS: BASOPHILS 0.6 %; BASOPHILS ABSOLUTE 0.04 10/3/uL (0.0-0.16); EOSINOPHILS 6.9 %; EOSINOPHILS ABSOLUTE 0.45 10/3/uL (0.0-0.53); HEMATOCRIT 28.1 % (36.0-48.0); HEMOGLOBIN 8.9 g/dL (12.0-16.0); IMMATURE GRANULOCYTES 0.5 %; IMMATURE GRANULOCYTES ABSOLUTE 0.03 10/3/uL (0.0-0.11); LYMPHOCYTES 29.4 %; LYMPHOCYTES ABSOLUTE 1.92 10/3/uL (0.67-4.30); MANUAL DIFF NO %; MEAN CORPUS HGB CONC 31.7 g/dL (32.0-36.0); MEAN CORPUSCULAR HEMOGLOB 30.2 pg (26.0-34.0); MEAN CORPUSCULAR VOLUME 95.3 fL (80-100); MEAN PLATELET VOLUME 12.5 fL (9.2-13.0); MONOCYTES 7.3 %; MONOCYTES ABSOLUTE 0.48 10/3/uL (0.21-1.20); NEUTROPHILS 55.3 %; NEUTROPHILS ABSOLUTE 3.62 10/3/uL (2.02-8.40); PLATELET COUNT 275 10/3/uL (150-400); RBC DISTRIBUTION WIDTH 16.2 % (12.0-16.0); RED CELL COUNT 2.95 10/6/uL (4.0-5.6); WHITE BLOOD CELLS 6.5 10/3/uL (4.5-10.5)
[2017-01-06 06:06] LABS: BASOPHILS 0.3 %; BASOPHILS ABSOLUTE 0.02 10/3/uL (0.0-0.16); EOSINOPHILS 6.1 %; EOSINOPHILS ABSOLUTE 0.37 10/3/uL (0.0-0.53); HEMATOCRIT 26.7 % (36.0-48.0); HEMOGLOBIN 8.1 g/dL (12.0-16.0); IMMATURE GRANULOCYTES 0.3 %; IMMATURE GRANULOCYTES ABSOLUTE 0.02 10/3/uL (0.0-0.11); LYMPHOCYTES 30.5 %; LYMPHOCYTES ABSOLUTE 1.84 10/3/uL (0.67-4.30); MEAN CORPUS HGB CONC 30.3 g/dL (32.0-36.0); MEAN CORPUSCULAR HEMOGLOB 29.3 pg (26.0-34.0); MEAN CORPUSCULAR VOLUME 96.7 fL (80-100); MEAN PLATELET VOLUME 12.5 fL (9.2-13.0); MONOCYTES 10.3 %; MONOCYTES ABSOLUTE 0.62 10/3/uL (0.21-1.20); NEUTROPHILS 52.5 %; NEUTROPHILS ABSOLUTE 3.16 10/3/uL (2.02-8.40); PLATELET COUNT 250 10/3/uL (150-400); RBC DISTRIBUTION WIDTH 16.7 % (12.0-16.0); RED CELL COUNT 2.76 10/6/uL (4.0-5.6)
[2017-01-06 06:07] LABS: MANUAL DIFF NO %
[2017-01-06 06:09] LABS: BUN (BLOOD UREA NITROGEN) 16 MG/DL (6-23); CALCIUM, SERUM 8.8 MG/DL (8.5-10.4); CHLORIDE, SERUM 110 MMOL/L (96-112); CO2 (CARBON DIOXIDE) 26 MMOL/L (24-34); CREATININE 1.11 MG/DL (0.55-1.02); GFR AFRICAN AMERICAN 56 ML/MIN (>=60); GFR NON AFRICAN AMERICAN 49 ML/MIN (>=60); GLUCOSE, SERUM 86 MG/DL (60-99); SODIUM, SERUM 143 MMOL/L (135-148)
[2017-01-06 06:10] LABS: POTASSIUM, SERUM 4.1 MMOL/L (3.5-5.3)
[2017-01-06 06:45] LABS: PROCALCITONIN 0.26 ng/mL (<0.5)
[2017-01-07 03:31] LABS: HEMATOCRIT 28.3 % (36.0-48.0); HEMOGLOBIN 8.9 g/dL (12.0-16.0); MEAN CORPUS HGB CONC 31.4 g/dL (32.0-36.0); MEAN CORPUSCULAR HEMOGLOB 31.1 pg (26.0-34.0); MEAN PLATELET VOLUME 9.9 fL (9.2-13.0); PLATELET COUNT 316 10/3/uL (150-400); RBC DISTRIBUTION WIDTH 15.5 % (12.0-16.0); RED CELL COUNT 2.86 10/6/uL (4.0-5.6)
[2017-01-07 03:35] LABS: MANUAL DIFF YES %; WHITE BLOOD CELLS 16.1 10/3/uL (4.5-10.5)
[2017-01-07 03:51] LABS: CHLORIDE, SERUM 103 MMOL/L (96-112); GFR AFRICAN AMERICAN 108 ML/MIN (>=60); GFR NON AFRICAN AMERICAN 93 ML/MIN (>=60); GLUCOSE, SERUM 89 MG/DL (60-99); SODIUM, SERUM 139 MMOL/L (135-148)
[2017-01-07 03:55] LABS: BUN (BLOOD UREA NITROGEN) 3 MG/DL (6-23); CO2 (CARBON DIOXIDE) 31 MMOL/L (24-34); CREATININE 0.52 MG/DL (0.55-1.02)
[2017-01-07 05:17] LABS: BAND NEUTROPHILS 9 %; BASOPHILS 1 %; BASOPHILS ABSOLUTE (CALC) 0.16 10/3/uL (0.0-0.16); EOSINOPHILS 1 %; EOSINOPHILS ABSOLUTE (CALC) 0.16 10/3/uL (0.0-0.53); IMMATURE GRANS ABSOLUTE (CALC) 0.16 10/3/uL (0.0-0.11); LYMPHOCYTES 10 %; LYMPHOCYTES ABSOLUTE (CALC) 1.61 10/3/uL (0.67-4.30); METAMYELOCYTES 1 %; MONOCYTES 2 %; MONOCYTES ABSOLUTE (CALC) 0.32 10/3/uL (0.21-1.20); NEUTROPHILS ABSOLUTE (CALC) 13.69 10/3/uL (2.02-8.40); SEGMENTED NEUTROPHIL (0) 76 %; TOTAL NUCLEATED CELLS 100
[2017-01-07 05:19] LABS: PLATELET ESTIMATE ADQ (ADEQUATE)
[2017-01-07 12:02] LABS: ALLENS TEST Pos; BE (BASE EXCESS) -1.8 MEQ/L (0 +/- 2.5); CARBOXYHEMOGLOBIN 0.7 % (0-3); DEVICE NC; HCO3 (ACTUAL BICARBONATE) 23.9 MEQ/L (23-27); INSTRUMENT SERIAL # 8083; METHEMOGLOBIN 0.2 % (0-3); O2 CONTENT 17.9 VOL% (18-24); PCO2 (CO2 TENSION) 44 MMHG (35-45); PO2 (O2 TENSION) 113 MMHG (79-93); SAMPLE Arterial; pH 7.35 (7.37-7.43)
[2017-01-07 13:11] LABS: ASCORBIC ACID (UR NOT ORDER) NEG (NEG); BILIRUBIN, URINE NEGATIVE (NEG); KETONE, URINE NEGATIVE (NEG); LEUKOCYTE ESTERASE(NOT OR LARGE (NEG); WBC (NOT ORDERED) (RFLEX) 138 (0-5)
[2017-01-08 06:27] LABS: BASOPHILS 0.6 %; BASOPHILS ABSOLUTE 0.04 10/3/uL (0.0-0.16); EOSINOPHILS 4.3 %; EOSINOPHILS ABSOLUTE 0.29 10/3/uL (0.0-0.53); HEMATOCRIT 30.3 % (36.0-48.0); HEMOGLOBIN 9.5 g/dL (12.0-16.0); IMMATURE GRANULOCYTES 0.4 %; IMMATURE GRANULOCYTES ABSOLUTE 0.03 10/3/uL (0.0-0.11); LYMPHOCYTES 22.7 %; LYMPHOCYTES ABSOLUTE 1.54 10/3/uL (0.67-4.30); MEAN CORPUS HGB CONC 31.4 g/dL (32.0-36.0); MEAN CORPUSCULAR HEMOGLOB 30.2 pg (26.0-34.0); MEAN CORPUSCULAR VOLUME 96.2 fL (80-100); MEAN PLATELET VOLUME 12.4 fL (9.2-13.0); MONOCYTES 6.8 %; MONOCYTES ABSOLUTE 0.46 10/3/uL (0.21-1.20); NEUTROPHILS 65.2 %; NEUTROPHILS ABSOLUTE 4.43 10/3/uL (2.02-8.40); PLATELET COUNT 318 10/3/uL (150-400); RBC DISTRIBUTION WIDTH 16.5 % (12.0-16.0); RED CELL COUNT 3.15 10/6/uL (4.0-5.6)
[2017-01-08 06:28] LABS: MANUAL DIFF NO %; WHITE BLOOD CELLS 6.8 10/3/uL (4.5-10.5)
[2017-01-08 06:35] LABS: CALCIUM, SERUM 8.8 MG/DL (8.5-10.4); CHLORIDE, SERUM 110 MMOL/L (96-112); POTASSIUM, SERUM 3.8 MMOL/L (3.5-5.3); SODIUM, SERUM 141 MMOL/L (135-148)
[2017-01-08 06:36] LABS: BUN (BLOOD UREA NITROGEN) 15 MG/DL (6-23); CO2 (CARBON DIOXIDE) 25 MMOL/L (24-34); CREATININE 1.14 MG/DL (0.55-1.02); GFR AFRICAN AMERICAN 54 ML/MIN (>=60); GFR NON AFRICAN AMERICAN 47 ML/MIN (>=60); GLUCOSE, SERUM 128 MG/DL (60-99)
[2017-01-08 18:18] LABS: BUN (BLOOD UREA NITROGEN) 21 MG/DL (6-23); CALCIUM, SERUM 8.9 MG/DL (8.5-10.4); CHLORIDE, SERUM 106 MMOL/L (96-112); CO2 (CARBON DIOXIDE) 27 MMOL/L (24-34); CREATININE 1.17 MG/DL (0.55-1.02); GFR AFRICAN AMERICAN 53 ML/MIN (>=60); GFR NON AFRICAN AMERICAN 46 ML/MIN (>=60); GLUCOSE, SERUM 98 MG/DL (60-99); SODIUM, SERUM 140 MMOL/L (135-148)
[2017-01-09 05:07] LABS: BASOPHILS 0.6 %; BASOPHILS ABSOLUTE 0.04 10/3/uL (0.0-0.16); EOSINOPHILS 3.6 %; EOSINOPHILS ABSOLUTE 0.25 10/3/uL (0.0-0.53); HEMATOCRIT 29.3 % (36.0-48.0); HEMOGLOBIN 9.4 g/dL (12.0-16.0); IMMATURE GRANULOCYTES ABSOLUTE 0.07 10/3/uL (0.0-0.11); LYMPHOCYTES 27.7 %; MANUAL DIFF NO %; MEAN CORPUS HGB CONC 32.1 g/dL (32.0-36.0); MEAN CORPUSCULAR HEMOGLOB 30.5 pg (26.0-34.0); MEAN CORPUSCULAR VOLUME 95.1 fL (80-100); MEAN PLATELET VOLUME 11.8 fL (9.2-13.0); MONOCYTES 9.2 %; MONOCYTES ABSOLUTE 0.63 10/3/uL (0.21-1.20); NEUTROPHILS 57.9 %; NEUTROPHILS ABSOLUTE 3.96 10/3/uL (2.02-8.40); PLATELET COUNT 332 10/3/uL (150-400); RBC DISTRIBUTION WIDTH 16.3 % (12.0-16.0); RED CELL COUNT 3.08 10/6/uL (4.0-5.6); WHITE BLOOD CELLS 6.9 10/3/uL (4.5-10.5)
[2017-01-09 05:19] LABS: BUN (BLOOD UREA NITROGEN) 18 MG/DL (6-23); CALCIUM, SERUM 8.9 MG/DL (8.5-10.4); CHLORIDE, SERUM 106 MMOL/L (96-112); CO2 (CARBON DIOXIDE) 30 MMOL/L (24-34); CREATININE 1.14 MG/DL (0.55-1.02); GFR AFRICAN AMERICAN 54 ML/MIN (>=60); GFR NON AFRICAN AMERICAN 47 ML/MIN (>=60); POTASSIUM, SERUM 3.5 MMOL/L (3.5-5.3); SODIUM, SERUM 140 MMOL/L (135-148)
[2017-01-09 05:21] LABS: GLUCOSE, SERUM 121 MG/DL (60-99)
[2017-01-10 06:09] LABS: BASOPHILS 0.8 %; BASOPHILS ABSOLUTE 0.05 10/3/uL (0.0-0.16); EOSINOPHILS 2.2 %; EOSINOPHILS ABSOLUTE 0.14 10/3/uL (0.0-0.53); HEMATOCRIT 28.6 % (36.0-48.0); HEMOGLOBIN 8.9 g/dL (12.0-16.0); IMMATURE GRANULOCYTES 0.8 %; IMMATURE GRANULOCYTES ABSOLUTE 0.05 10/3/uL (0.0-0.11); LYMPHOCYTES 38.7 %; LYMPHOCYTES ABSOLUTE 2.51 10/3/uL (0.67-4.30); MEAN CORPUS HGB CONC 31.1 g/dL (32.0-36.0); MEAN CORPUSCULAR VOLUME 96.3 fL (80-100); MEAN PLATELET VOLUME 11.7 fL (9.2-13.0); MONOCYTES 10.2 %; MONOCYTES ABSOLUTE 0.66 10/3/uL (0.21-1.20); NEUTROPHILS 47.3 %; NEUTROPHILS ABSOLUTE 3.08 10/3/uL (2.02-8.40); PLATELET COUNT 296 10/3/uL (150-400); RBC DISTRIBUTION WIDTH 16.6 % (12.0-16.0); RED CELL COUNT 2.97 10/6/uL (4.0-5.6); WHITE BLOOD CELLS 6.5 10/3/uL (4.5-10.5)
[2017-01-10 06:10] LABS: MANUAL DIFF NO %
[2017-01-10 06:12] LABS: BUN (BLOOD UREA NITROGEN) 21 MG/DL (6-23); CALCIUM, SERUM 9.2 MG/DL (8.5-10.4); CHLORIDE, SERUM 105 MMOL/L (96-112); CO2 (CARBON DIOXIDE) 30 MMOL/L (24-34); CREATININE 1.15 MG/DL (0.55-1.02); GFR AFRICAN AMERICAN 54 ML/MIN (>=60); GFR NON AFRICAN AMERICAN 47 ML/MIN (>=60); GLUCOSE, SERUM 112 MG/DL (60-99); SODIUM, SERUM 139 MMOL/L (135-148)
[2017-01-11 05:58] LABS: BASOPHILS 0.5 %; BASOPHILS ABSOLUTE 0.04 10/3/uL (0.0-0.16); EOSINOPHILS 2.7 %; HEMATOCRIT 28.8 % (36.0-48.0); HEMOGLOBIN 9.2 g/dL (12.0-16.0); IMMATURE GRANULOCYTES 0.7 %; IMMATURE GRANULOCYTES ABSOLUTE 0.05 10/3/uL (0.0-0.11); LYMPHOCYTES 34.8 %; LYMPHOCYTES ABSOLUTE 2.56 10/3/uL (0.67-4.30); MEAN CORPUS HGB CONC 31.9 g/dL (32.0-36.0); MEAN CORPUSCULAR HEMOGLOB 30.7 pg (26.0-34.0); MEAN PLATELET VOLUME 11.7 fL (9.2-13.0); MONOCYTES 9.9 %; MONOCYTES ABSOLUTE 0.73 10/3/uL (0.21-1.20); NEUTROPHILS 51.4 %; NEUTROPHILS ABSOLUTE 3.78 10/3/uL (2.02-8.40); PLATELET COUNT 357 10/3/uL (150-400); RBC DISTRIBUTION WIDTH 16.4 % (12.0-16.0); WHITE BLOOD CELLS 7.4 10/3/uL (4.5-10.5)
[2017-01-11 06:00] LABS: MANUAL DIFF NO %
[2017-01-11 06:18] LABS: ALBUMIN 2.5 G/DL (3.5-5.0); CALCIUM, SERUM 9.6 MG/DL (8.5-10.4); CHLORIDE, SERUM 103 MMOL/L (96-112); CO2 (CARBON DIOXIDE) 29 MMOL/L (24-34); CREATININE 1.37 MG/DL (0.55-1.02); GFR AFRICAN AMERICAN 44 ML/MIN (>=60); GFR NON AFRICAN AMERICAN 38 ML/MIN (>=60); GLUCOSE, SERUM 106 MG/DL (60-99); POTASSIUM, SERUM 4.2 MMOL/L (3.5-5.3); SODIUM, SERUM 138 MMOL/L (135-148)
[2017-01-11 06:19] LABS: BUN (BLOOD UREA NITROGEN) 25 MG/DL (6-23); PHOSPHORUS, SERUM 1.7 MG/DL (2.5-4.5)
[2017-01-12 06:54] LABS: ALBUMIN 2.4 G/DL (3.5-5.0); BUN (BLOOD UREA NITROGEN) 26 MG/DL (6-23); CHLORIDE, SERUM 107 MMOL/L (96-112); CO2 (CARBON DIOXIDE) 33 MMOL/L (24-34); GFR AFRICAN AMERICAN 46 ML/MIN (>=60); GFR NON AFRICAN AMERICAN 40 ML/MIN (>=60); GLUCOSE, SERUM 101 MG/DL (60-99); SODIUM, SERUM 143 MMOL/L (135-148)
[2017-01-12 06:58] LABS: PHOSPHORUS, SERUM 2.9 MG/DL (2.5-4.5)
[2017-01-13] MEDS ORDERED: PLAVIX PO (12:27)
[2017-01-13] MEDS ORDERED: NORCO1 TA2 PO (12:27)
[2017-01-13] MEDS ORDERED: CIP5 PO (12:27)
[2017-01-13] MEDS ORDERED: MONODOX100 MG PO (12:28)
[2017-01-13] MEDS ORDERED: ASABAYER PO (12:29)
== END 2017-01-13 15:30 | DRG 871 ==
LOC: ER 09:22 → CCU 09:51 → 2SO 01-05 10:59
PROVIDERS: Emergency Medicine; Hospitalist; Internal Medicine; Internal Medicine Critical Care Medicine; Internal Medicine Pulmonary Disease
PROC: 5A1945Z Respiratory Ventilation, 24-96 Consecutive Hours (ICD-10-PCS; principal; 2016-12-30)
PROC: 0BH17EZ Insertion of Endotracheal Airway into Trachea, Via Natural or Artificial Opening (ICD-10-PCS; 2016-12-30)
PROC: 05HM33Z Insertion of Infusion Device into Right Internal Jugular Vein, Percutaneous Approach (ICD-10-PCS; 2016-12-30)
PROC: B543ZZA Ultrasonography of Right Jugular Veins, Guidance (ICD-10-PCS; 2016-12-30)
PROC: 5A1945Z Respiratory Ventilation, 24-96 Consecutive Hours (ICD-10-PCS; 2016-12-30)
PROC: 0BH17EZ Insertion of Endotracheal Airway into Trachea, Via Natural or Artificial Opening (ICD-10-PCS; 2016-12-30)
DX: A41.9 Sepsis, unspecified organism (principal); J96.01 Acute respiratory failure with hypoxia; R65.21 Severe sepsis with septic shock; J18.9 Pneumonia, unspecified organism; G93.41 Metabolic encephalopathy; N17.9 Acute kidney failure, unspecified; I13.0 Hypertensive heart and chronic kidney disease with heart failure and stage 1 through stage 4 chronic kidney disease, or unspecified chronic kidney disease; J96.92 Respiratory failure, unspecified with hypercapnia; I50.32 Chronic diastolic (congestive) heart failure; N39.0 Urinary tract infection, site not specified; N18.3 Chronic kidney disease, stage 3 (moderate); E11.22 Type 2 diabetes mellitus with diabetic chronic kidney disease; I48.0 Paroxysmal atrial fibrillation; R13.12 Dysphagia, oropharyngeal phase; Z51.5 Encounter for palliative care; I34.0 Nonrheumatic mitral (valve) insufficiency; I35.0 Nonrheumatic aortic (valve) stenosis; I36.1 Nonrheumatic tricuspid (valve) insufficiency; I25.10 Atherosclerotic heart disease of native coronary artery without angina pectoris; B96.20 Unspecified Escherichia coli [E. coli] as the cause of diseases classified elsewhere; Z66 Do not resuscitate; Z88.5 Allergy status to narcotic agent; Z86.711 Personal history of pulmonary embolism; Z98.890 Other specified postprocedural states; Z79.01 Long term (current) use of anticoagulants
CPT/HCPCS: 31500; 31720; 36600; 71010; 71250; 74000; 74230; 80048; 80053; 80069; 80076; 80200; 81001; 82140; 82272; 82805; 82962; 83605; 83735; 83880; 84100; 84134; 84145; 84484; 85025; 85610; 85730; 87040; 87070; 87086; 87150; 87205; 87449; 87493; 87493-59; 87641; 92610-GN; 92611-GN; 93005; 94002; 94003; 94640; 94660; 94770; 96374; 97110-GP; 97161-GP; 97530-GP; 99285; A9270-GY; C9113; G8978-CL-GP; G8979-CK-GP; G8996-CJ-GN; G8996-CK-GN; G8997-CJ-GN; G8997-CK-GN; G8998-CJ-GN; G8998-CK-GN; J0360; J0692; J2405; J3260; J3370; J3411; J3475